=== PATIENT | female | born 1955 | race Caucasian/White ===

== ENCOUNTER 2017-05-11 11:34 | Emergency (ER) | payer BC, OTHER ==
[2017-05-11 11:41] VITALS: BP 142/82; PULSE 76; TEMP 98.7; BMI 25.9
[2017-05-11] MEDS ORDERED: ACETAMINOPHEN WITH CODEINE 300MG/30MG TABLET PO ONE (12:26)
[2017-05-11] MEDS ORDERED: ACETAMINOPHEN WITH CODEINE 300MG/30MG TABLET ONE (12:28)
[2017-05-11] MEDS ORDERED: PSEUDOEPHEDRINE HCL 30 MG TABLET PO ONE (12:30)
--- NOTE | 2017-05-11 12:37 | PDOC ---
History of Present Illness - General Chief Complaint: Cold Symptoms Stated Complaint: COUGH, BACK PAIN Time Seen by Provider: 05/11/17 11:48 History Source: Patient Exam Limitations: No Limitations - History of Present Illness Initial Comments: 05/11/17 12:37 This is 62-year-old woman with past medical history of hypertension who presents to the emergency department with fever, headaches, sore throat, productive cough with yellow sputum 2 days. Patient states that she woke up on Friday feeling feverish did not check her temperature but felt warm. She has tried [id number] medications to help alleviate symptoms with minimal relief. She denies shortness of breath, chest pain, nausea, vomiting, changes in urination or bowel pattern. She does report upper back pain which worsens with cough and intermittent dizziness. Timing/Duration: reports: other (2 days) Past History - Past Medical History Allergies/Adverse Reactions: Allergies Allergy/AdvReac Type Severity Reaction Status Date / Time vancomycin Allergy Unknown Verified 05/11/17 11:41 Home Medications: Ambulatory Orders Hydrochlorothiazide [Hctz -] 12.5 mg PO DAILY 05/11/17 Oseltamivir Phosphate [Tamiflu -] 75 mg PO DAILY #5 capsule 05/11/17 HTN: Yes - Surgical History Abdominal Surgery: Yes (gastric bypass) - Suicide/Smoking/Psychosocial Hx Smoking History: Never smoked Have you smoked in the past 12 months: No Hx Alcohol Use: No Drug/Substance Use Hx: No Substance Use Type: None Hx Substance Use Treatment: No Review of Systems - Review of Systems Able to Perform ROS?: Yes Is the patient limited Portuguese proficient: No Constitutional: Yes: See HPI HEENTM: Yes: See HPI Respiratory: Yes: See HPI Cardiac (ROS): No: Symptoms Reported ABD/GI: No: Symptoms Reported : No: Symptoms Reported Musculoskeletal: No: Symptoms Reported Integumentary: No: Symptoms Reported Neurological: No: Symptoms reported *Physical Exam - Vital Signs Last Vital Signs Temp Pulse Resp BP Pulse Ox 98.7 F 76 20 142/82 98 05/11/17 11:37 05/11/17 11:37 05/11/17 11:37 05/11/17 11:37 05/11/17 11:37 - Physical Exam General Appearance: Yes: Appropriately Dressed. No: Apparent Distress HEENT: positive: EOMI, SONIA, Pharyngeal Erythema. negative: Tonsillar Exudate Neck: positive: Trachea midline, Supple. negative: Tender Respiratory/Chest: positive: Lungs Clear, Normal Breath Sounds. negative: Respiratory Distress, Accessory Muscle Use Cardiovascular: positive: Regular Rhythm, Regular Rate, S1, S2. negative: Edema , JVD, Murmur Musculoskeletal: positive: Normal Inspection. negative: CVA Tenderness Extremity: positive: Normal Capillary Refill, Normal Inspection, Normal Range of Motion Neurologic: positive: ms sql server developer II-XII NML intact, Fully Oriented, Alert, Normal Mood/ Affect, Normal Response, Motor Strength 11/22 ED Treatment Course - RADIOLOGY Radiology Studies Ordered: Category Date Time Status CHEST PA & LAT [RAD] Stat Radiology 05/11/17 12:28 Ordered Medical Decision Making - Medical Decision Making 05/11/17 12:37 This is 62-year-old woman with past medical history of hypertension who presents to the emergency department with fever, headaches, sore throat, productive cough with yellow sputum 2 days. Patient states that she woke up on Friday feeling feverish did not check her temperature but felt warm. She has tried [id number] medications to help alleviate symptoms with minimal relief. She denies shortness of breath, chest pain, nausea, vomiting, changes in urination or bowel pattern. She does report upper back pain which worsens with cough and intermittent dizziness. Patient is alert and oriented 3 and in no apparent distress. Cranial nerves II through XII intact with steady gait appreciated. TMs pearly chatman with appropriate light reflex bilaterally. Oropharynx erythematous without signs of exudates or edema. Lungs clear to auscultation bilaterally respirations even and unlabored. Regular rate and rhythm. S1 and S2 presents. No murmur rub or gallop. Normal bowel sounds presents. Abdomen soft nontender nondistended. Differential diagnoses upper respiratory viral illness, pneumonia Given Centor score of 0, subjective fevers, cough, I will obtain influenza nasopharyngeal swab, do a chest x-ray, and treats with Tylenol 3 for pain and cough suppression and Sudafed given nasal congestion. 05/11/17 13:31 Official read of chest x-ray by Dr. Escobar-2 views revealed clear lungs, normal mediastinum and sharp mangles. Soft tissues are intact and there are degenerative changes with wedging. Since 05/16/2016, there is no change of an adverse nature. Impression: No acute pathology. No significant change. Influenza Nerf nasopharyngeal swab is positive for influenza B. I will give the patient a prescription for Tamiflu. I will instruct the patient to take Tylenol and/or Motrin as needed by follow manufacturers instructions. I will instruct the patient to take Coricidin for nasal congestion as needed and directed by manufacturers instructions. I will instruct to follow-up with her primary doctor within 1 week if symptoms do not improve. *DC/Admit/Observation/Transfer Diagnosis at time of Disposition: Influenza due to influenza virus, type B - Discharge Dispostion Disposition: HOME Condition at time of disposition: Stable Admit: No - Prescriptions Prescriptions: Oseltamivir Phosphate [Tamiflu -] 75 mg PO DAILY #5 capsule - Referrals Referrals: Jarret Yancey [Primary Care Provider] - - Patient Instructions Additional Instructions: Drink plenty of fluids. Take, or Motrin as needed for pain and/or fevers as directed by manufacturers instructions. You've been prescribed Tamiflu take one tablet every day for the next 5 days. If he does feel better within the next week, follow-up with your primary doctor. Return to emergency department for worsening fever, headaches, nausea, vomiting , inability to swallow, or any other concerns. Thank you very much for choosing us to provide your emergent healthcare needs.
[2017-05-11] MEDS ORDERED: PSEUDOEPHEDRINE HCL 60 MG TABLET ONE (12:40)
== END 2017-05-11 13:45 | disposition home or self-care (01) ==
LOC: JERFT 11:34
DX: J10.1 Influenza due to other identified influenza virus with other respiratory manifestations (principal)
CPT/HCPCS: 71020-TC; 87804; 99281-25

== ENCOUNTER 2018-08-27 13:17 | Inpatient (IN) | payer BC ==
[2018-08-27 13:33] VITALS: BMI 27.4
[2018-08-27] MEDS ORDERED: SODIUM CHLORIDE 1,000 ML IV STA ×2 (15:32→17:05)
--- NOTE | 2018-08-27 15:32 | PDOC ---
History of Present Illness - General Chief Complaint: Back Pain Stated Complaint: lower BACK PAIN Time Seen by Provider: 08/27/18 14:21 History Source: Patient Exam Limitations: No Limitations - History of Present Illness Initial Comments: 08/27/18 16:31 Patient is a 63-year-old female who presents to the ER for low back pain and neck pain starting this afternoon. Patient states that she was outside in the garden at school when she suddenly felt dizzy and lightheaded. Patient states she blacked out and fell to the ground. When she came to she had neck pain and low-back pain. She states that she feels weak at this time. Denies fevers, chills, chest pain, nausea, vomiting, diarrhea, recent illness. Patient did not get a flu shot this year. Past History - Travel Traveled outside of the country in the last 30 days: No Close contact w/someone who was outside of country & ill: No - Past Medical History Allergies/Adverse Reactions: Allergies Allergy/AdvReac Type Severity Reaction Status Date / Time vancomycin Allergy Unknown Verified 08/27/18 13:32 Home Medications: Ambulatory Orders Hydrochlorothiazide [Hctz -] 12.5 mg PO DAILY 05/11/17 COPD: No HTN: Yes - Surgical History Abdominal Surgery: Yes (gastric bypass) - Suicide/Smoking/Psychosocial Hx Smoking History: Never smoked Have you smoked in the past 12 months: No Information on smoking cessation initiated: No Hx Alcohol Use: No Drug/Substance Use Hx: No Substance Use Type: None Hx Substance Use Treatment: No Review of Systems - Review of Systems Able to Perform ROS?: Yes Comments:: 08/27/18 15:43 CONSTITUTIONAL: Absent: fever, chills, diaphoresis, generalized weakness, malaise, loss of appetite HEENT: Absent: rhinorrhea, nasal congestion, throat pain, throat swelling, difficulty swallowing, mouth swelling, ear pain, eye pain, visual Changes CARDIOVASCULAR: Present: LOC Absent: chest pain, loss of consciousness, palpitations, irregular heart rate, peripheral edema RESPIRATORY: Absent: cough, shortness of breath, dyspnea with exertion, orthopnea, wheezing, stridor, hemoptysis GASTROINTESTINAL: Absent: abdominal pain, abdominal distension, nausea, vomiting, diarrhea, constipation, melena, hematochezia GENITOURINARY: Absent: dysuria, frequency, urgency, hesitancy, hematuria, flank pain, genital pain MUSCULOSKELETAL: Present: neck and back pain Absent: myalgia, arthralgia, joint swelling SKIN: Absent: rash, itching, pallor HEMATOLOGIC/IMMUNOLOGIC: Absent: easy bleeding, easy bruising, lymphadenopathy, frequent infections ENDOCRINE: Absent: unexplained weight gain, unexplained weight loss, heat intolerance, cold intolerance NEUROLOGIC: Present: dizziness Absent: headache, focal weakness or paresthesias, unsteady gait, seizure, mental status changes, bladder or bowel incontinence PSYCHIATRIC: Absent: anxiety, depression, suicidal or homicidal ideation, hallucinations. Is the patient limited Wolof proficient: No *Physical Exam - Vital Signs Last Vital Signs Temp Pulse Resp BP Pulse Ox 97.9 F 67 18 181/89 H 100 08/27/18 13:30 08/27/18 13:30 08/27/18 13:30 08/27/18 13:30 08/27/18 13:30 - Physical Exam Comments: 08/27/18 16:30 GENERAL: Well developed, well nourished. Awake and alert. No acute distress. HEENT: Normocephalic, atraumatic. PERRLA, EOMI. No conjunctival pallor. Sclera are non- icteric. Moist mucous membranes. Oropharynx is clear. NECK: Supple. Full ROM. No JVD. Carotid pulses 2+ and symmetric, without bruits. No thyromegaly. No lymphadenopathy. CARDIOVASCULAR: Regular rate and rhythm. No murmurs, rubs, or gallops. Distal pulses are 2+ and symmetric. PULMONARY: No evidence of respiratory distress. Lungs clear to auscultation bilaterally. No wheezing, rales or rhonchi. ABDOMINAL: Soft. Non-tender. Non-distended. No rebound or guarding. No organomegaly. Normoactive bowel sounds. MUSCULOSKELETAL TTP of the L paraspinous muscles from C4-C8. TTP of the paraspinous muscles of the low back b/l L3-L5. No midline tenderess. (-) straight leg raise. Normal range of motion at all joints. No bony deformities or tenderness. No CVA tenderness. EXTREMITIES: No cyanosis. No clubbing. No edema. No calf tenderness. SKIN: Warm and dry. Normal capillary refill. No rashes. No jaundice. NEUROLOGICAL: Alert, awake, appropriate. Cranial nerves 2-12 intact. No deficits to light touch and temperature in face, upper extremities and lower extremities. No motor deficits in the in face, upper extremities and lower extremities. Normoreflexic in the upper and lower extremities. Normal speech. Toes are down- going bilaterally. Gait is normal without ataxia. PSYCHIATRIC: Cooperative. Good eye contact. Appropriate mood and affect. Moderate Sedation - Procedure Monitoring Vital Signs: Procedure Monitoring Vital Signs Temperature 97.9 F 08/27/18 13:30 Pulse Rate 67 08/27/18 13:30 Respiratory Rate 18 08/27/18 13:30 Blood Pressure 181/89 H 08/27/18 13:30 O2 Sat by Pulse Oximetry (%) 100 08/27/18 13:30 ED Treatment Course - LABORATORY CBC & Chemistry Diagram: 08/27/18 16:29 08/27/18 16:29 Medical Decision Making - Medical Decision Making 08/27/18 16:32 Patient presents to the ED for neck pain and back pain status post syncopal episode this afternoon. Patient initially triaged to fast track. Current patient blood pressure is 181/89. Given complaints of syncope we'll order a syncope workup. Patient endorsed to the main ER. Discharge nurse and main ER attending made aware. Patient is stable for transfer to the main ER. *DC/Admit/Observation/Transfer Diagnosis at time of Disposition: Syncope - Referrals - Patient Instructions - Post Discharge Activity
[2018-08-27] MEDS ORDERED: ACETAMINOPHEN 1000 MG/100 ML VIAL (NON FORMULARY) IVPB ONE (15:33)
[2018-08-27 16:43] LABS: BASO % 0.6 % (0-2.0); EOS % 0.6 % (0-4.5); HEMATOCRIT 35.3 % (32.4-45.2); HEMOGLOBIN 11.8 GM/dL (10.7-15.3); MCH 27.8 pg (25.7-33.7); MCHC 33.4 g/dl (32.0-36.0); MEAN PLT VOLUME 9.6 fl (7.5-11.1); MONO % 5.9 % (3.8-10.2); NEUT % 64.9 % (42.8-82.8); PLATELET COUNT 182 K/MM3 (134-434); RBC 4.25 M/mm3 (3.60-5.2); RDW 15.5 % (11.6-15.6); WHITE BLOOD COUNT 6.4 K/mm3 (4.0-10.0)
[2018-08-27 16:48] LABS: URINE APPEARANCE CLEAR; URINE BILIRUBIN NEGATIVE (<2.0 mg/dL); URINE COLOR LTYELLOW; URINE GLUCOSE (UA) NEGATIVE (NEGATIVE); URINE KETONE TRACE (NEGATIVE); URINE LEUK ESTERASE 1+ (NEGATIVE); URINE NITRITE NEGATIVE (NEGATIVE); URINE PROTEIN NEGATIVE (NEGATIVE)
[2018-08-27 17:05] LABS: INR 1.05 (0.83-1.09); PROTHROMBIN TIME (PATIENT) 12.4 SEC (9.7-13.0)
[2018-08-27 17:15] LABS: EPI CELLS RARE /HPF (FEW); URINE MUCUS RARE
[2018-08-27 17:22] LABS: ALBUMIN 3.9 g/dl (3.4-5.0); ALK PHOS 79 U/L (45-117); ANION GAP 5 MMOL/L (8-16); BILIRUBIN,TOTAL 0.3 mg/dL (0.2-1); BLOOD UREA NITROGEN 12 mg/dL (7-18); CALCIUM 9.4 mg/dL (8.5-10.1); CHLORIDE 106 mmol/L (98-107); CO2 29 mmol/L (21-32); CREATININE 0.6 mg/dL (0.55-1.3); GLUCOSE,RANDOM 137 mg/dL (74-106); POTASSIUM 4.2 mmol/L (3.5-5.1); SGOT/AST 29 U/L (15-37); SGPT/ALT 22 U/L (13-61); SODIUM 140 mmol/L (136-145)
--- NOTE | 2018-08-27 17:25 | PDOC ---
History of Present Illness - General Chief Complaint: Back Pain Stated Complaint: lower BACK PAIN Time Seen by Provider: 08/27/18 14:21 History Source: Patient Exam Limitations: No Limitations, Clinical Condition, Dementia - History of Present Illness Initial Comments: History is limited because patient is apparently very forgetful and has changed her story 3 times since beginning to interview her. She appears to have some type of dementia. 63 yo F w a pmh of HTN, DM (Which patient says has resolved since receiving Gastric bypass), Gastric bypass, unspecified dementia and migraines presents to the ER s/p syncope earlier on today associated with bilateral lower back pain. She reports that she does not remember the syncope episode. She does not think her heart was racing before the fall. She also does not believe she experienced any palpitations, lightheadedness, diaphoresis, or aura before the fall. She believes she was only passed out for a short duration of time not more than 1 minute. She denies any postictal symptoms. She states this is the 4th time she has fallen down in the past week and denies any prodromal symptoms prior to the syncopal episodes. She denies any chest pain, SOB, difficulty breathing, headache, neck pain, blurry vision, fevers, chills, infections, dysuria, frequency, urgency, weakness , numbness, tingling, chills, abdominal pain, diarrhea, or constipation. PCP: Jarret Yancey PSH: Gastric Bypass Social Hx: Denies smoking, drinking, or other substance usage. Allergies: Vancomycin Past History - Past Medical History Allergies/Adverse Reactions: Allergies Allergy/AdvReac Type Severity Reaction Status Date / Time vancomycin Allergy Unknown Verified 08/27/18 13:32 Home Medications: Ambulatory Orders Hydrochlorothiazide [Hctz -] 12.5 mg PO DAILY 05/11/17 COPD: No HTN: Yes - Surgical History Abdominal Surgery: Yes (gastric bypass) - Suicide/Smoking/Psychosocial Hx Smoking History: Never smoked Have you smoked in the past 12 months: No Information on smoking cessation initiated: No Hx Alcohol Use: No Drug/Substance Use Hx: No Substance Use Type: None Hx Substance Use Treatment: No Review of Systems - Review of Systems Is the patient limited Bulgarian proficient: No Constitutional: No: Chills, Diaphoresis, Fever, Loss of Appetite, Malaise, Weakness HEENTM: No: Eye Pain, Blurred Vision Respiratory: No: Cough, Orthopnea, Shortness of Breath, SOB with Exertion, SOB at Rest, Wheezing Cardiac (ROS): Yes: Syncope. No: Chest Pain, Edema, Irregular Heart Rate, Lightheadedness, Palpitations, Chest Tightness ABD/GI: No: Abdominal Distended, Constipated, Diarrhea, Nausea, Poor Appetite, Poor Fluid Intake, Rectal Bleeding, Vomiting : Yes: Flank Pain. No: Burning, Dysuria, Discharge, Frequency, Hematuria Musculoskeletal: Yes: Back Pain. No: Joint Swelling, Muscle Pain Integumentary: No: Bruising, Change in Color, Change in Hair/Nails, Dryness, Erythema, Flushing, Lesions Neurological: Yes: Headache. No: Numbness, Paresthesia, Seizure, Tingling, Tremors Psychiatric: Yes: Anxiety. No: Depression, Frequent Crying, Stressors Endocrine: No: Excessive Sweating, Flushing Hematologic/Lymphatic: No: Anemia, Blood Clots, Easy Bleeding *Physical Exam - Vital Signs Last Vital Signs Temp Pulse Resp BP Pulse Ox 97.9 F 67 18 181/89 H 100 08/27/18 13:30 08/27/18 13:30 08/27/18 13:30 08/27/18 13:30 08/27/18 13:30 - Physical Exam General Appearance: Yes: Nourished, Appropriately Dressed. No: Apparent Distress HEENT: positive: EOMI, SONIA, Normal ENT Inspection, Normal Voice Neck: positive: Trachea midline, Supple. negative: Tender, Rigid, Lymphadenopathy (R), Lymphadenopathy (L) Respiratory/Chest: positive: Lungs Clear, Normal Breath Sounds. negative: Respiratory Distress Cardiovascular: positive: Regular Rhythm, Regular Rate, S1, S2. negative: Edema , JVD, Murmur Vascular Pulses: Dorsalis-Pedis (R): 2+, Doralis-Pedis (L): 2+ Gastrointestinal/Abdominal: positive: Normal Bowel Sounds, Soft. negative: Distended, Guarding, Rebound Rectal Exam: positive: deferred Lymphatic: negative: Adenopathy Musculoskeletal: positive: Normal Inspection, CVA Tenderness (bilaterally), Muscle Spasm, Vertebral Tenderness Extremity: positive: Normal Capillary Refill, Normal Inspection, Normal Range of Motion Integumentary: positive: Normal Color, Dry, Warm Neurologic: positive: sap architect II-XII NML intact, Fully Oriented, Alert, Normal Mood/ Affect, Normal Response, Motor Strength 5/5 Moderate Sedation - Procedure Monitoring Vital Signs: Procedure Monitoring Vital Signs Temperature 97.9 F 08/27/18 13:30 Pulse Rate 67 08/27/18 13:30 Respiratory Rate 18 08/27/18 13:30 Blood Pressure 181/89 H 08/27/18 13:30 O2 Sat by Pulse Oximetry (%) 100 08/27/18 13:30 ED Treatment Course - LABORATORY CBC & Chemistry Diagram: 08/27/18 16:29 08/27/18 16:29 - ADDITIONAL ORDERS Additional order review: Laboratory Results 08/27/18 08/27/18 08/27/18 16:29 16:29 16:29 PT with INR 12.40 INR 1.05 Sodium 140 Potassium 4.2 Chloride 106 Carbon Dioxide 29 Anion Gap 5 L BUN 12 Creatinine 0.6 Creat Clearance w eGFR > 60 Random Glucose 137 H Calcium 9.4 Total Bilirubin 0.3 AST 29 ALT 22 Alkaline Phosphatase 79 Creatine Kinase 154 Troponin I < 0.02 Total Protein 8.0 Albumin 3.9 Urine Color Urine Appearance Urine pH Ur Specific [place] Urine Protein Urine Glucose (UA) Urine Ketones Urine Blood Urine Nitrite Urine Bilirubin Urine Urobilinogen Ur Leukocyte Esterase Urine WBC (Auto) Urine RBC (Auto) Ur Epithelial Cells Urine Mucus 08/27/18 16:01 PT with INR INR Sodium Potassium Chloride Carbon Dioxide Anion Gap BUN Creatinine Creat Clearance w eGFR Random Glucose Calcium Total Bilirubin AST ALT Alkaline Phosphatase Creatine Kinase Troponin I Total Protein Albumin Urine Color Ltyellow Urine Appearance Clear Urine pH 6.0 D Ur Specific [place] 1.016 Urine Protein Negative Urine Glucose (UA) Negative Urine Ketones Trace H Urine Blood Negative Urine Nitrite Negative Urine Bilirubin Negative Urine Urobilinogen 2.0 H Ur Leukocyte Esterase 1+ H Urine WBC (Auto) 10 Urine RBC (Auto) 1 Ur Epithelial Cells Rare Urine Mucus Rare 08/27/18 16:29 RBC 4.25 MCV 83.0 MCHC 33.4 RDW 15.5 MPV 9.6 Neutrophils % 64.9 Lymphocytes % 28.0 Monocytes % 5.9 Eosinophils % 0.6 Basophils % 0.6 Medical Decision Making - Medical Decision Making History is limited because patient is apparently very forgetful and has changed her story 3 times since beginning to interview her. She appears to have some type of dementia. 63 yo F w a pmh of HTN, DM (Which patient says has resolved since receiving Gastric bypass), Gastric bypass, unspecified dementia and migraines presents to the ER s/p syncope earlier on today associated with bilateral lower back pain. She reports that she does not remember the syncope episode. She does not think her heart was racing before the fall. She also does not believe she experienced any palpitations, lightheadedness, diaphoresis, or aura before the fall. She believes she was only passed out for a short duration of time not more than 1 minute. She denies any postictal symptoms. She states this is the 4th time she has fallen down in the past week and denies any prodromal symptoms prior to the syncopal episodes. VS: BP is elevated. DDx IBNLT: AAA, Dissection, arrhythmia, acs/mi, electrolyte abnormality, Vitamin derangement, Brain bleed, vertebral fracture, other infection, UTI/Pylo , kidney stones Plan: Labs, Urine, CT, XR, EKG, POCUS, IV hydration, analgesia, re-assess. POCUS shows no AAA. Cbc, Cmp unremarkable UA shows small possible UTI but patient is asymptomatic. After workup patient will be admitted to Tele Obs for repeated syncope workup. Signing out patient to night team. *DC/Admit/Observation/Transfer Diagnosis at time of Disposition: Syncope - Referrals - Patient Instructions - Post Discharge Activity
--- NOTE | 2018-08-27 18:14 | PDOC ---
Attending Attestation - HPI HPI: 08/27/18 18:18 The patient is a 63 year old female with a significant PMH of HTN, DM, gastric bypass, unspecified dementia, and migraines who presents to the emergency department with an episode of dizziness earlier today. 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 Patient states she felt "her back pulled" and has been experiencing back pain since then. Patient had another slip and fall 2 weeks ago, in which she slipped on a crack on the ground. Patient denies any head trauma or loss of consciousness both times. Today, the patient reports she was playing with the children in the playground and subsequently felt dizzy. Patient's friend grabbed her before she could fall to the ground and helped her to the nurse. Patient presents to the ER for evaluation of frequent slips and falls. Patient has not seen her PCP in months and is concerned about possible Alzheimer's. As per the the patient has had episodes of forgetfulness over the last 4 months. Patient admits to urinary frequency over the past 3 days. She denies any chest pain, abdominal pain, diaphoresis, numbness/tingling/ weakness, SOB, headache, neck pain, vision changes, fevers, chills, dysuria, urgency, diarrhea, or constipation. PSH: Gastric Bypass Social Hx: Denies smoking, drinking, or other substance usage. Allergies: Vancomycin - Physicial Exam PE: 08/27/18 18:18 ADULT PHYSICAL EXAM Constitutional: Awake, alert, oriented. No acute distress. Neck: Supple. Full ROM. No lymphadenopathy. Cardiovascular: Regular rate. Regular rhythm. S1, S2 regular. Distal pulses are 2+ and symmetric. Pulmonary/Chest: No evidence of respiratory distress. Clear to auscultation bilaterally. No wheezing, rales or rhonchi. Abdominal: Soft and non-distended. There is no tenderness. No rebound, guarding or rigidity. No organomegaly. No palpable masses. Good bowel sounds. Back: No CVA tenderness. (+) Midline L spine tenderness to palpation; no radiation to the legs. Musculoskeletal: No saitial anesthesias or paresthesias. No edema. No cyanosis. No clubbing. Full range of motion in all extremities. No calf tenderness. Radial/pedal pulses are intact and 2+ bilaterally Skin: Skin is warm and dry. No petechiae. No purpura. Neurological: Alert and oriented to person, place, and time. Cranial nerves II -XII are grossly intact. Normal speech. Strength is grossly symmetric. No sensory deficits. Psychiatric: Good eye contact. Normal interaction, affect and behavior. <Joyce Figueredo - Last Filed: 08/27/18 18:29> - Resident Resident Name: Arnold Schaefer - ED Attending Attestation I have performed the following: I have examined & evaluated the patient, The case was reviewed & discussed with the resident, I agree w/resident's findings & plan, Exceptions are as noted - Medical Decision Making 08/27/18 17:57 I, Dr. Joanne Gonzalez, DO, attest that this document has been prepared under my direction and personally reviewed by me in its entirety. I further attest, that it accurately reflects all work, treatment, procedures and medical decision -making performed by me. 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 -c/o lbp and urinary freq recently -no red flags - no saddle paresthesias, no radicular pain, no weakness, no paresthesias, no bowel or bladder incontinence -labs sent from [facility] -pending imaging - concerned over memory loss that has been present x 4 months -pt also with hx of gastric bypass- will check b vitamin levels and folic acid -will monitor and reassess -no cp/sob/palpitations 08/27/18 19:35 labs reviewed mild uti- given freq will treat 08/27/18 19:35 pt with concern for syncope vs near syncope today - pt is a poor historian and on different histories provides LOC vs lack of loc 08/27/18 19:[address] pt on obs 08/27/18 19:38 cxr clear no acute findings on head ct or c spine ct 08/27/18 21:29 resident discussed case with Dr. Contreras who accepts pt to service <Joanne Gonzalez - Last Filed: 08/27/18 21:30> Heart Score/ECG Review - ECG Intrepretation Comment:: 08/27/18 19:36 sinus at 65, nl axis, low voltage, t wave flattening diffusely <Joanne Gonzalez - Last Filed: 08/27/18 21:30>
[2018-08-27] MEDS ORDERED: ACETAMINOPHEN INJECTION 100 ML IVPB ONE (18:22)
[2018-08-27 18:40] LABS: MAGNESIUM 2.3 mg/dL (1.8-2.4)
--- NOTE | 2018-08-27 19:29 | PDOC ---
*Physical Exam - Vital Signs Last Vital Signs Temp Pulse Resp BP Pulse Ox 97.9 F 67 18 181/89 H 100 08/27/18 13:30 08/27/18 13:30 08/27/18 13:30 08/27/18 13:30 08/27/18 13:30 ED Treatment Course - LABORATORY CBC & Chemistry Diagram: 08/27/18 16:29 08/27/18 16:29 - ADDITIONAL ORDERS Additional order review: Laboratory Results 08/27/18 08/27/18 08/27/18 16:29 16:29 16:29 PT with INR 12.40 INR 1.05 Sodium 140 Potassium 4.2 Chloride 106 Carbon Dioxide 29 Anion Gap 5 L BUN 12 Creatinine 0.6 Creat Clearance w eGFR > 60 Random Glucose 137 H Calcium 9.4 Magnesium 2.3 Total Bilirubin 0.3 AST 29 ALT 22 Alkaline Phosphatase 79 Creatine Kinase 154 Creatine Kinase Index 0.6 CK-MB (CK-2) < 1.0 Troponin I < 0.02 Total Protein 8.0 Albumin 3.9 Urine Color Urine Appearance Urine pH Ur Specific [place] Urine Protein Urine Glucose (UA) Urine Ketones Urine Blood Urine Nitrite Urine Bilirubin Urine Urobilinogen Ur Leukocyte Esterase Urine WBC (Auto) Urine RBC (Auto) Ur Epithelial Cells Urine Mucus 08/27/18 16:01 PT with INR INR Sodium Potassium Chloride Carbon Dioxide Anion Gap BUN Creatinine Creat Clearance w eGFR Random Glucose Calcium Magnesium Total Bilirubin AST ALT Alkaline Phosphatase Creatine Kinase Creatine Kinase Index CK-MB (CK-2) Troponin I Total Protein Albumin Urine Color Ltyellow Urine Appearance Clear Urine pH 6.0 D Ur Specific [place] 1.016 Urine Protein Negative Urine Glucose (UA) Negative Urine Ketones Trace H Urine Blood Negative Urine Nitrite Negative Urine Bilirubin Negative Urine Urobilinogen 2.0 H Ur Leukocyte Esterase 1+ H Urine WBC (Auto) 10 Urine RBC (Auto) 1 Ur Epithelial Cells Rare Urine Mucus Rare 08/27/18 16:29 RBC 4.25 MCV 83.0 MCHC 33.4 RDW 15.5 MPV 9.6 Neutrophils % 64.9 Lymphocytes % 28.0 Monocytes % 5.9 Eosinophils % 0.6 Basophils % 0.6 - Medications Given in the ED: ED Medications Discontinued Medications Generic Name Dose Route Start Last Admin Trade Name Freq PRN Reason Stop Dose Admin Acetaminophen 1,000 mg 08/27/18 15:33 08/27/18 18:28 Ofirmev Injection - IVPB 08/27/18 15:34 1,000 mg ONCE ONE Administration Sodium Chloride 1,000 mls @ 1,000 mls/hr 08/27/18 15:32 08/27/18 18:01 Normal Saline - IV 08/27/18 16:31 1,000 mls/hr ASDIR STA Administration Sodium Chloride 1,000 mls @ 1,000 mls/hr 08/27/18 17:05 08/27/18 18:01 Normal Saline - IV 08/27/18 18:04 1,000 mls/hr ASDIR STA Administration Medical Decision Making - Medical Decision Making I have assumed care of the patient from Dr. Lobato, who has discussed the clinical presentation, work-up, and ED course thus far. I have reviewed the patients medical record and ED course and agree with all aspects of care thus far. 08/27/18 19:24 CT cervical spine w/ multilevel degenerative changes, possible small central C3- C4 and C4-C5 disc herniations CT head w/ no definite acute intracranial pathology; probable mild pituitary enlargement -Rads recs non-urgent MRI, and PRL level ordered CXR w/o evidence of acute pathology ECG w/ NSR, HR 65, low voltage, and baseline artifact No leukocytosis No anemia Lytes wnl No DEBRA LFTs wnl Trop I neg 08/27/18 19:26 Plan for admission to [facility] for syncope vs near syncope 08/27/18 19:37 08/27/18 19:38 *DC/Admit/Observation/Transfer Diagnosis at time of Disposition: Syncope Qualifiers: Syncope type: unspecified Qualified Code(s): R55 - Syncope and collapse - Discharge Dispostion Condition at time of disposition: Good Decision to Admit order: Yes - Referrals - Patient Instructions - Post Discharge Activity
[2018-08-27] MEDS ORDERED: CEFTRIAXONE 1,000 MG in DEXTROSE 5%-WATER - 50 ML IVPB ONE (19:35)
[2018-08-27] MEDS ORDERED: IBUPROFEN 600 MG TABLET (FP) PO ONE (19:48)
--- NOTE | 2018-08-27 20:59 | HP ---
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 She reports that she hit her head. Denied any other complaints. ER course was notable for: (1) ekg (2) head ct (3) Recent Travel: none PAST MEDICAL HISTORY: htn PAST SURGICAL HISTORY: gastric bypass Social History: Smoking: no Alcohol:no Drugs: no Family History: none Allergies vancomycin Allergy (Unknown, Verified 08/27/18 13:32) HOME MEDICATIONS: Home Medications Medication Instructions Recorded Hydrochlorothiazide [Hctz -] 12.5 mg PO DAILY 05/11/17 REVIEW OF SYSTEMS CONSTITUTIONAL: Absent: fever, chills, diaphoresis, generalized weakness, malaise, loss of appetite, weight change HEENT: Absent: rhinorrhea, nasal congestion, throat pain, throat swelling, difficulty swallowing, mouth swelling, ear pain, eye pain, visual changes CARDIOVASCULAR: Absent: chest pain, syncope, lightheadedness, peripheral edema present- palpitations, irregular heart rate, RESPIRATORY: Absent: cough, shortness of breath, dyspnea with exertion, orthopnea, wheezing, stridor, hemoptysis GASTROINTESTINAL: Absent: abdominal pain, abdominal distension, nausea, vomiting, diarrhea, constipation, melena, hematochezia GENITOURINARY: Absent: dysuria, frequency, urgency, hesitancy, hematuria, flank pain, genital pain MUSCULOSKELETAL: Absent: myalgia, arthralgia, joint swelling, back pain, neck pain SKIN: Absent: rash, itching, pallor HEMATOLOGIC/IMMUNOLOGIC: Absent: easy bleeding, easy bruising, lymphadenopathy, frequent infections ENDOCRINE: Absent: unexplained weight gain, unexplained weight loss, heat intolerance, cold intolerance NEUROLOGIC: Absent: headache, focal weakness or paresthesias, dizziness, unsteady gait, seizure, mental status changes, bladder or bowel incontinence PSYCHIATRIC: Absent: anxiety, depression, suicidal or homicidal ideation, hallucinations. PHYSICAL EXAMINATION Vital Signs - 24 hr 08/27/18 13:30 Temperature 97.9 F Pulse Rate 67 Respiratory 18 Rate Blood Pressure 181/89 H O2 Sat by Pulse 100 Oximetry (%) GENERAL: Awake, alert, and fully oriented, in no acute distress. HEAD: Normal with no signs of trauma. EYES: Pupils equal, round and reactive to light, extraocular movements intact, sclera anicteric, conjunctiva clear. No lid lag. EARS, NOSE, THROAT: Ears normal, nares patent, oropharynx clear without exudates. Moist mucous membranes. NECK: Normal range of motion, supple without lymphadenopathy, JVD, or masses. LUNGS: Breath sounds equal, clear to auscultation bilaterally. No wheezes, and no crackles. No accessory muscle use. HEART: Regular rate and rhythm, normal S1 and S2 without murmur, rub or gallop. ABDOMEN: Soft, nontender, not distended, normoactive bowel sounds, no guarding, no rebound, no masses. No hepatomegaly or splenomegaly. MUSCULOSKELETAL: Normal range of motion at all joints. No bony deformities or tenderness. No CVA tenderness. UPPER EXTREMITIES: 2+ pulses, warm, well-perfused. No cyanosis. No clubbing. No peripheral edema. LOWER EXTREMITIES: 2+ pulses, warm, well-perfused. No calf tenderness. Varicose veins b/l NEUROLOGICAL: Cranial nerves II-XII intact. Normal speech. PSYCHIATRIC: Cooperative. Good eye contact. Appropriate mood and affect. SKIN: Warm, dry, normal turgor, no rashes or lesions noted, normal capillary refill. Laboratory Results - last 24 hr 08/27/18 08/27/18 08/27/18 16:01 16:29 16:29 WBC 6.4 RBC 4.25 Hgb 11.8 Hct 35.3 MCV 83.0 MCH 27.8 MCHC 33.4 RDW 15.5 Plt Count 182 MPV 9.6 Absolute Neuts (auto) 4.2 Neutrophils % 64.9 Lymphocytes % 28.0 Monocytes % 5.9 Eosinophils % 0.6 Basophils % 0.6 Nucleated RBC % 0 PT with INR 12.40 INR 1.05 Sodium Potassium Chloride Carbon Dioxide Anion Gap BUN Creatinine Creat Clearance w eGFR Random Glucose Calcium Magnesium Total Bilirubin AST ALT Alkaline Phosphatase Creatine Kinase Creatine Kinase Index CK-MB (CK-2) Troponin I Total Protein Albumin Urine Color Ltyellow Urine Appearance Clear Urine pH 6.0 D Ur Specific [place] 1.016 Urine Protein Negative Urine Glucose (UA) Negative Urine Ketones Trace H Urine Blood Negative Urine Nitrite Negative Urine Bilirubin Negative Urine Urobilinogen 2.0 H Ur Leukocyte Esterase 1+ H Urine WBC (Auto) 10 Urine RBC (Auto) 1 Ur Epithelial Cells Rare Urine Mucus Rare 08/27/18 08/27/18 16:29 16:29 WBC RBC Hgb Hct MCV MCH MCHC RDW Plt Count MPV Absolute Neuts (auto) Neutrophils % Lymphocytes % Monocytes % Eosinophils % Basophils % Nucleated RBC % PT with INR INR Sodium 140 Potassium 4.2 Chloride 106 Carbon Dioxide 29 Anion Gap 5 L BUN 12 Creatinine 0.6 Creat Clearance w eGFR > 60 Random Glucose 137 H Calcium 9.4 Magnesium 2.3 Total Bilirubin 0.3 AST 29 ALT 22 Alkaline Phosphatase 79 Creatine Kinase 154 Creatine Kinase Index 0.6 CK-MB (CK-2) < 1.0 Troponin I < 0.02 Total Protein 8.0 Albumin 3.9 Urine Color Urine Appearance Urine pH Ur Specific [place] Urine Protein Urine Glucose (UA) Urine Ketones Urine Blood Urine Nitrite Urine Bilirubin Urine Urobilinogen Ur Leukocyte Esterase Urine WBC (Auto) Urine RBC (Auto) Ur Epithelial Cells Urine Mucus ekg reviewed -CT head, C spine reviewed ASSESSMENT/PLAN: #Syncope - possible occult arrythmia, Hx of palpitations. R/o orthostatic hypotension. -tele-obs -fall precautions -trend troponin -echo -cardiac eval for holter monitoring -check orthostatics #Pituitary enlargement - patient asymptomatic -send prolactin level -consider MRI -neuro eval #HTN -c/w hydrochlorothiazide #DVT ppx -heparin sc Visit type - Emergency Visit Emergency Visit: Yes ED Registration Date: 08/27/18 Care time: The patient presented to the Emergency Department on the above date and was hospitalized for further evaluation of their emergent condition. - New Patient This patient is new to me today: Yes Date on this admission: 08/27/18 - Critical Care Critical Care patient: No
[2018-08-27] MEDS ORDERED: SODIUM CHLORIDE 1,000 ML IV SCH (21:15)
[2018-08-27] MEDS ORDERED: CEFTRIAXONE 1 GM/50 ML BAG ONE (21:50)
[2018-08-27] MEDS ORDERED: HEPARIN NA (PORCINE) 5,000 UNITS/ML 1ML VIAL ONE (21:51)
[2018-08-27] MEDS: HEPARIN NA (PORCINE) 5,000 UNITS/ML 1ML VIAL SQ SCH (22:10)
[2018-08-27 23:20] LABS: MAGNESIUM 2.1 mg/dL (1.8-2.4)
[2018-08-28] MEDS ORDERED: PNEUMOC 13-VAL CONJ-DIP CRM/PF 0.5 ML DISP.SYRIN IM ONE (08:00)
[2018-08-28] MEDS ORDERED: FLU VACCINE QUAD 60 MCG/0.5 ML (MDV 18-19) IM ONE (09:00)
[2018-08-28] MEDS ORDERED: PNEUMOCOCCAL 23 VACCINE 0.5 ML VIAL IM ONE (09:00)
[2018-08-28] MEDS: HYDROCHLOROTHIAZIDE 12.5 MG CAPSULE (FP) PO SCH (09:33)
[2018-08-28] MEDS: HEPARIN NA (PORCINE) 5,000 UNITS/ML 1ML VIAL SQ SCH ×2 (09:33→21:50)
[2018-08-28 12:04] LABS: HEMATOCRIT 35.1 % (32.4-45.2); HEMOGLOBIN 11.7 GM/dL (10.7-15.3); MCH 27.8 pg (25.7-33.7); MCHC 33.2 g/dl (32.0-36.0); MEAN CELL VOLUME 83.6 fl (80-96); MEAN PLT VOLUME 10.2 fl (7.5-11.1); PLATELET COUNT 197 K/MM3 (134-434); RBC 4.19 M/mm3 (3.60-5.2); RDW 15.6 % (11.6-15.6)
[2018-08-28 12:24] LABS: ANION GAP 6 MMOL/L (8-16); BLOOD UREA NITROGEN 10 mg/dL (7-18); CALCIUM 9.1 mg/dL (8.5-10.1); CHLORIDE 110 mmol/L (98-107); CO2 24 mmol/L (21-32); CREATININE 0.6 mg/dL (0.55-1.3); GLUCOSE,RANDOM 90 mg/dL (74-106); POTASSIUM 3.6 mmol/L (3.5-5.1); SODIUM 140 mmol/L (136-145)
--- NOTE | 2018-08-28 12:35 | PN ---
Progress Note, Physician Chief Complaint: patient seen and examined came back from xray complaining of dysuria and right flank pain also neck pain - Current Medication List Current Medications: Active Medications Heparin Sodium (Porcine) (Heparin -) 5,000 unit SQ BID [facility] Last Admin: 08/28/18 09:33 Dose: 5,000 unit Hydrochlorothiazide (Hctz -) 12.5 mg PO DAILY [facility] Last Admin: 08/28/18 09:33 Dose: 12.5 mg Sodium Chloride (Normal Saline -) 1,000 mls @ 50 mls/hr IV ASDIR [facility] Stop: 08/28/18 21:05 Last Admin: 08/27/18 22:00 Dose: 50 mls/hr Ceftriaxone Sodium 1 gm/ (Dextrose) 100 mls @ 200 mls/hr IVPB DAILY [facility]; Protocol - Objective Vital Signs: Vital Signs Temperature 98.2 F 08/28/18 08:00 Pulse Rate 59 L 08/28/18 08:00 Respiratory Rate 20 08/28/18 11:49 Blood Pressure 151/79 08/28/18 08:00 O2 Sat by Pulse Oximetry (%) 100 08/28/18 11:49 Constitutional: Yes: Calm Cardiovascular: Yes: Regular Rate and Rhythm, S1, S2 Respiratory: Yes: CTA Bilaterally Gastrointestinal: Yes: Normal Bowel Sounds, Soft Genitourinary: Yes: CVA Tenderness - Right Musculoskeletal: Yes: Other (neck and upper back tenderness) Edema: No Labs: CBC, BMP 08/28/18 10:50 08/28/18 06:00 INR, PTT INR 1.05 (0.83-1.09) 08/27/18 16:29 Problem List - Problems (1) Syncope Assessment/Plan: telemetry ct scan of neck disc disease neurology eval prolactinona Code(s): R55 - SYNCOPE AND COLLAPSE Qualifiers: Syncope type: unspecified Qualified Code(s): R55 - Syncope and collapse (2) Dysuria Assessment/Plan: awaiting culture rocephin renal sono r/p pyelonephritis ivf Code(s): R30.0 - DYSURIA (3) Pituitary abnormality Assessment/Plan: prloactin ordered brain MRI- pituatrty Code(s): 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
[2018-08-28] MEDS ORDERED: PT OWN MED DRAWER 7, Y5N ONE (13:21)
--- NOTE | 2018-08-28 13:24 | EKG ---
Test Reason : Blood Pressure : / mmHG Vent. Rate : 065 BPM Atrial Rate : 070 BPM P-R Int : 000 ms QRS Dur : 074 ms QT Int : 394 ms P-R-T Axes : 000 010 006 degrees QTc Int : 409 ms POOR DATA QUALITY, INTERPRETATION MAY BE ADVERSELY AFFECTED JUNCTIONAL RHYTHM CANNOT RULE OUT ANTERIOR INFARCT , AGE UNDETERMINED ABNORMAL ECG WHEN COMPARED WITH ECG OF 16-MAY-2016 01:57, JUNCTIONAL RHYTHM HAS REPLACED SINUS RHYTHM Confirmed by ROBERT JIN MD ([id number]) on 08/28/2018 1:23:47 PM Referred By: Confirmed By:ROBERT JIN MD
--- NOTE | 2018-08-28 13:44 | CON.CARD ---
Consult Consult Specialty:: cardiology Referred by:: Diane Reason for Consultation:: Syncope - History of Present Illness Chief Complaint: Syncope History of Present Illness: The patient is a 63-year-old female, we have a history of hypertension, now admitted with palpitations and syncope. 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 The events were witnessed by several people that stated that the patient was unresponsive for a short time. She is currently comfortable and symptom free. Denies chest pains and shortness of breath. No palpitations. - History Source History Provided By: Patient Limitations to Obtaining History: No Limitations - Past Medical History Cardio/Vascular: Yes: HTN - Alcohol/Substance Use Hx Alcohol Use: No - Smoking History Smoking history: Never smoked Have you smoked in the past 12 months: No Home Medications - Allergies Allergies/Adverse Reactions: Allergies Allergy/AdvReac Type Severity Reaction Status Date / Time vancomycin Allergy Unknown Verified 08/27/18 13:32 - Home Medications Home Medications: Ambulatory Orders Hydrochlorothiazide [Hctz -] 12.5 mg PO DAILY 05/11/17 Review of Systems - Review of Systems Constitutional: reports: No Symptoms Eyes: reports: No Symptoms HENT: reports: No Symptoms Neck: reports: No Symptoms Cardiovascular: reports: No Symptoms Respiratory: reports: No Symptoms Gastrointestinal: reports: No Symptoms Genitourinary: reports: No Symptoms Breasts: reports: No Symptoms Reported Musculoskeletal: reports: No Symptoms Integumentary: reports: No Symptoms Neurological: reports: No Symptoms Endocrine: reports: No Symptoms Hematology/Lymphatic: reports: No Symptoms Psychiatric: reports: No Symptoms Vital Signs: Vital Signs Temperature 98.2 F 08/28/18 08:00 Pulse Rate 59 L 08/28/18 08:00 Respiratory Rate 20 08/28/18 11:49 Blood Pressure 151/79 08/28/18 08:00 O2 Sat by Pulse Oximetry (%) 100 08/28/18 11:49 Constitutional: Yes: Well Nourished, No Distress, Calm Eyes: Yes: WNL, Conjunctiva Clear, EOM Intact HENT: Yes: WNL, Atraumatic, Normocephalic Neck: Yes: WNL, Supple, Thyromegaly Respiratory: Yes: WNL, Regular, CTA Bilaterally Gastrointestinal: Yes: WNL, Normal Bowel Sounds, Soft Renal/: Yes: WNL Cardiovascular: Yes: WNL, Regular Rate and Rhythm JVD: No Carotid Bruit: No PMI: Non-Displaced Heart Sounds: Yes: S1, S2 Musculoskeletal: Yes: WNL Extremities: Yes: WNL Edema: No Peripheral Pulses WNL: Yes Integumentary: Yes: WNL Neurological: Yes: WNL ...Motor Strength: WNL Psychiatric: Yes: WNL - Other Data Labs, Other Data: CBC, BMP 08/28/18 10:50 08/28/18 06:00 INR, PTT INR 1.05 (0.83-1.09) 08/27/18 16:29 Troponin, BNP 08/27/18 16:29 Troponin I < 0.02 Troponin, BNP 08/27/18 16:29 Troponin I < 0.02 Assessment/Plan The patient is a 63-year-old female, we have a history of hypertension, now admitted with palpitations and syncope. 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 The events were witnessed by several people that stated that the patient was unresponsive for a short time. She is currently comfortable and symptom free. Denies chest pains and shortness of breath. No palpitations. Is no evidence of ischemia nor acute coronary syndrome. No CHF. The patient is in sinus rhythm. There are no acute ECG changes. No significant events noted on telemetry. Please arrange for an echocardiogram. Would start Norvasc 5 mg daily for better blood pressure control Hydrate with normal saline, for a total of 2 L. There is no need for further critical workup at this point We'll follow the echo results. The patient is stable.
--- NOTE | 2018-08-28 13:54 | ECHO ---
Name: NATASHA ALFONSO Exam:Adult Echocardiogram Study Date: 08/28/2018 08:35 AM Age: 63 yrs Reason For Study: SYNCOPE Height: 66 in Weight: 170 lb BSA: 1.9 m2 MMode/2D Measurements & Calculations IVSd: 0.96 cm Ao root diam: 2.8 cm LVIDd: 4.1 cm LA dimension: 3.4 cm LVIDs: 2.4 cm LVPWd: 0.95 cm EDV(Teich): 72.5 ml LAV (MOD-bp): 60.6 ml ESV(Teich): 19.5 ml Doppler Measurements & Calculations MV E max avery: 80.5 cm/sec MR max avery: 394.0 cm/sec MV A max avery: 66.0 cm/sec MR max P.1 mmHg MV E/A: 1.2 MV dec time: 0.16 sec TR max avery: 225.4 cm/sec Med Peak E' Avery: 9.6 cm/sec TR max P.7 mmHg Med E/e': 8.4 Lat Peak E' Avery: 11.5 cm/sec Lat E/e': 7.0 Left Ventricle Left ventricular systolic function is normal. Ejection Fraction = 50-55%. Right Ventricle The right ventricle is normal in size and function. Atria The left atrium is mildly dilated. Mitral Valve The mitral valve is normal in structure and function. There is no mitral valve stenosis. There is mil d mitral regurgitation. Tricuspid Valve The tricuspid valve is normal in structure and function. There is mild tricuspid regurgitation. Right ventricular systolic pressure is elevated at 30-40mmHg. Aortic Valve The aortic valve opens well. No hemodynamically significant valvular aortic stenosis. No aortic regur gitation is present. Pulmonic Valve The pulmonic valve is not well seen, but is grossly normal. There is no pulmonic valvular stenosis. M ild pulmonic valvular regurgitation. Great Vessels The aortic root is normal size. Pericardium/Pleura There is no pericardial effusion. Interpretation Summary Left ventricular systolic function is normal. Ejection Fraction = 50-55%. The right ventricle is normal in size and function. The left atrium is mildly dilated. There is mild mitral regurgitation. There is mild tricuspid regurgitation. Right ventricular systolic pressure is elevated at 30-40mmHg. There is no pericardial effusion. MD Starr *Francy 08/28/2018 01:54 PM
[2018-08-28] MEDS ORDERED: cefTRIAXone SODIUM 1 GM VIAL ONE (14:06)
[2018-08-28] MEDS ORDERED: DEXTROSE 5%-WATER - 50 ML IVPB ONE (14:06)
[2018-08-28] MEDS: CEFTRIAXONE 1 GM in DEXTROSE 5%-WATER - 50 ML IVPB SCH (14:12)
[2018-08-28] MEDS: METHYL SALICYLATE/MENTHOL OINT 30 GM TUBE TP SCH ×2 (14:27→21:59)
[2018-08-29 07:10] LABS: BASO % 0.5 % (0-2.0); EOS % 1.9 % (0-4.5); HEMATOCRIT 33.4 % (32.4-45.2); HEMOGLOBIN 11.1 GM/dL (10.7-15.3); LYMPH % 26.6 % (8-40); MCH 27.2 pg (25.7-33.7); MCHC 33.3 g/dl (32.0-36.0); MEAN CELL VOLUME 81.6 fl (80-96); MEAN PLT VOLUME 9.6 fl (7.5-11.1); MONO % 7.9 % (3.8-10.2); NEUT % 63.1 % (42.8-82.8); PLATELET COUNT 172 K/MM3 (134-434); RBC 4.09 M/mm3 (3.60-5.2); RDW 15.6 % (11.6-15.6)
[2018-08-29 07:23] LABS: ALBUMIN 3.4 g/dl (3.4-5.0); ALK PHOS 73 U/L (45-117); ANION GAP 7 MMOL/L (8-16); BILIRUBIN,TOTAL 0.4 mg/dL (0.2-1); BLOOD UREA NITROGEN 10 mg/dL (7-18); CHLORIDE 104 mmol/L (98-107); CO2 28 mmol/L (21-32); CREATININE 0.5 mg/dL (0.55-1.3); GLUCOSE,RANDOM 89 mg/dL (74-106); POTASSIUM 3.3 mmol/L (3.5-5.1); SGOT/AST 23 U/L (15-37); SGPT/ALT 16 U/L (13-61); SODIUM 139 mmol/L (136-145)
[2018-08-29] MEDS ORDERED: cefTRIAXone SODIUM 1 GM VIAL ONE (08:53)
[2018-08-29] MEDS ORDERED: DEXTROSE 5%-WATER - 50 ML IVPB ONE (08:54)
[2018-08-29] MEDS: HYDROCHLOROTHIAZIDE 12.5 MG CAPSULE (FP) PO SCH (09:28)
[2018-08-29] MEDS: HEPARIN NA (PORCINE) 5,000 UNITS/ML 1ML VIAL SQ SCH ×2 (09:28→22:20)
[2018-08-29] MEDS: CEFTRIAXONE 1 GM in DEXTROSE 5%-WATER - 50 ML IVPB SCH (09:28)
[2018-08-29] MEDS: METHYL SALICYLATE/MENTHOL OINT 30 GM TUBE TP SCH ×2 (09:29→22:21)
[2018-08-29] MEDS ORDERED: POTASSIUM CHLORIDE TABS 20 MEQ TABLET.ER (FP) PO ONE (11:30)
--- NOTE | 2018-08-29 11:36 | PN ---
Progress Note, Physician History of Present Illness: C/O DIZZINESS THIS AM - Current Medication List Current Medications: Active Medications Heparin Sodium (Porcine) (Heparin -) 5,000 unit SQ BID [facility] Last Admin: 08/29/18 09:28 Dose: 5,000 unit Hydrochlorothiazide (Hctz -) 12.5 mg PO DAILY [facility] Last Admin: 08/29/18 09:28 Dose: 12.5 mg Ceftriaxone Sodium 1 gm/ (Dextrose) 50 mls @ 100 mls/hr IVPB DAILY [facility]; Protocol Last Admin: 08/29/18 09:28 Dose: 100 mls/hr Methyl Salicylate (Timothy-Sheth -) 1 applic TP BID [facility] Last Admin: 08/29/18 09:29 Dose: 1 applic - Objective Vital Signs: Vital Signs Temperature 98 F 08/29/18 10:00 Pulse Rate 74 08/29/18 10:00 Respiratory Rate 20 08/29/18 10:00 Blood Pressure 139/87 08/29/18 10:00 O2 Sat by Pulse Oximetry (%) 100 08/28/18 20:00 Respiratory: Yes: Regular, CTA Bilaterally Gastrointestinal: Yes: Normal Bowel Sounds, Soft Edema: No Neurological: Yes: Alert, Oriented Labs: CBC, BMP 08/29/18 05:30 08/29/18 05:30 INR, PTT INR 1.05 (0.83-1.09) 08/27/18 16:29 Problem List - Problems (1) Syncope Assessment/Plan: telemetry ct scan of neck disc disease neurology eval R/O prolactinoma Code(s): R55 - SYNCOPE AND COLLAPSE Qualifiers: Syncope type: unspecified Qualified Code(s): R55 - Syncope and collapse (2) Dysuria Assessment/Plan: REPEAT UA ABX Code(s): R30.0 - DYSURIA (3) Pituitary abnormality Assessment/Plan: prloactin 7 NEURO brain MRI- pituitary Code(s): 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
--- NOTE | 2018-08-29 14:02 | PN ---
Progress Note, Physician Chief Complaint: still some postural dizziness tele neg History of Present Illness: The patient is a 63-year-old female, we have a history of hypertension, now admitted with palpitations and syncope. 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 The events were witnessed by several people that stated that the patient was unresponsive for a short time. She is currently comfortable and symptom free. Denies chest pains and shortness of breath. No palpitations. There no evidence of ischemia nor acute coronary syndrome. No CHF. The patient is in sinus rhythm. There are no acute ECG changes. Echo 08/28/18 normal EF mild mr/tr pap 30-40 - Current Medication List Current Medications: Active Medications Heparin Sodium (Porcine) (Heparin -) 5,000 unit SQ BID [facility] Last Admin: 08/29/18 09:28 Dose: 5,000 unit Hydrochlorothiazide (Hctz -) 12.5 mg PO DAILY [facility] Last Admin: 08/29/18 09:28 Dose: 12.5 mg Ceftriaxone Sodium 1 gm/ (Dextrose) 50 mls @ 100 mls/hr IVPB DAILY [facility]; Protocol Last Admin: 08/29/18 09:28 Dose: 100 mls/hr Methyl Salicylate (Timothy-Sheth -) 1 applic TP BID [facility] Last Admin: 08/29/18 09:29 Dose: 1 applic - Objective Vital Signs: Vital Signs Temperature 98 F 08/29/18 10:00 Pulse Rate 74 08/29/18 10:00 Respiratory Rate 20 08/29/18 10:00 Blood Pressure 139/87 08/29/18 10:00 O2 Sat by Pulse Oximetry (%) 100 08/28/18 20:00 Constitutional: Yes: No Distress, Calm Eyes: Yes: Conjunctiva Clear, EOM Intact HENT: Yes: Atraumatic, Normocephalic Neck: Yes: Trachea Midline Cardiovascular: Yes: Regular Rate and Rhythm Respiratory: Yes: CTA Bilaterally Gastrointestinal: Yes: Normal Bowel Sounds, Soft Extremities: Yes: WNL Edema: No Peripheral Pulses WNL: Yes Labs: CBC, BMP 08/29/18 05:30 08/29/18 05:30 INR, PTT INR 1.05 (0.83-1.09) 08/27/18 16:29 Assessment/Plan The patient is a 63-year-old female, we have a history of hypertension, now admitted with palpitations and syncope. 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 The events were witnessed by several people that stated that the patient was unresponsive for a short time. She is currently comfortable and symptom free. Denies chest pains and shortness of breath. No palpitations. Syncope--There is no evidence of ischemia nor acute coronary syndrome. No CHF. The patient is in sinus rhythm. There are no acute ECG changes. No significant events noted on telemetry. Would start Norvasc 5 mg daily for better blood pressure control Echo is normal. The patient is stable. DC telemetry. Will follow as needed.
--- NOTE | 2018-08-29 14:39 | EKG ---
Test Reason : Blood Pressure : / mmHG Vent. Rate : 069 BPM Atrial Rate : 069 BPM P-R Int : 144 ms QRS Dur : 074 ms QT Int : 386 ms P-R-T Axes : -05 011 007 degrees QTc Int : 413 ms NORMAL SINUS RHYTHM NORMAL ECG WHEN COMPARED WITH ECG OF 27-AUG-2018 19:12, SINUS RHYTHM HAS REPLACED JUNCTIONAL RHYTHM Confirmed by Michael Levy MD ([id number]) on 08/29/2018 2:39:06 PM Referred By: Hayes GLORIA Confirmed By:Michael Levy MD
[2018-08-30] MEDS ORDERED: DEXTROSE 5%-WATER - 50 ML IVPB ONE (08:56)
[2018-08-30] MEDS ORDERED: cefTRIAXone SODIUM 1 GM VIAL ONE (08:56)
[2018-08-30] MEDS: CEFTRIAXONE 1 GM in DEXTROSE 5%-WATER - 50 ML IVPB SCH (09:26)
[2018-08-30] MEDS: HYDROCHLOROTHIAZIDE 12.5 MG CAPSULE (FP) PO SCH (09:26)
[2018-08-30] MEDS: HEPARIN NA (PORCINE) 5,000 UNITS/ML 1ML VIAL SQ SCH ×2 (09:26→21:32)
[2018-08-30] MEDS: METHYL SALICYLATE/MENTHOL OINT 30 GM TUBE TP SCH ×2 (09:27→21:32)
--- NOTE | 2018-08-30 11:49 | CON.NEURO ---
Consult - Past Medical History Cardio/Vascular: Yes: HTN - Alcohol/Substance Use Hx Alcohol Use: No - Smoking History Smoking history: Never smoked Have you smoked in the past 12 months: No Home Medications - Allergies Allergies/Adverse Reactions: Allergies Allergy/AdvReac Type Severity Reaction Status Date / Time vancomycin Allergy Unknown Verified 08/27/18 13:32 - Home Medications Home Medications: Ambulatory Orders Hydrochlorothiazide [Hctz -] 12.5 mg PO DAILY 05/11/17 Physical Exam-Neuro Vital Signs: Vital Signs Temperature 98.1 F 08/30/18 10:00 Pulse Rate 73 08/30/18 10:00 Respiratory Rate 18 08/30/18 10:00 Blood Pressure 137/67 08/30/18 10:00 O2 Sat by Pulse Oximetry (%) 99 08/30/18 04:00 Labs: CBC, BMP 08/29/18 05:30 08/29/18 05:30 INR, PTT INR 1.05 (0.83-1.09) 08/27/18 16:29 Assessment/Plan cc Episode of syncope HPI 63 year old female history of forgetfullness was called to see for Syncope. Patient has history of htn, dm, and gastric bypass. As per patient after gastric bypass her diabetes got better. She has episode of passing out , she was feeling dizzy and everything is darkening. Her was holding her and she did not fell on the floor. Her ct scan of brain is normal. She is being monitored in tele floor. Patient denies any fall since she get to hospital. She denies any focal neruological syptoms. There was no family member to verify memory difficulty. PMH as above. PSH: Gastric Bypass Social Hx: Denies smoking, drinking, or other substance usage. Allergies: Vancomycin Allergies/Adverse Reactions: Allergies Allergy/AdvReac Type Severity Reaction Status Date / Time vancomycin Allergy Unknown Verified 08/27/18 13:32 Home Medications Hydrochlorothiazide [Hctz -] 12.5 mg PO DAILY 05/11/17 POLINA ARRIOLA reviewed in chart NEUROLOGICAL EXAMIATNION Alert oriented x 2, she could tell this is aug 2018 but could not tell day of the week or date. she knows she is at [employer]. speech is normal, no neck stiffness eomi, pupils reactive, no face asymmetry motor 5/5 all ext . sensation is noraml gait and coordination is normal CT head is normal vitamin b12 is 326 Assessment/Plan 63 year old female history of htn, came with syncope, clinically less likley to be Epileptic seizure. 2. Memory difficulty , would need more assessment outpatient and confirm functional activities by Plan: I would add EEG -Follow up on mri brain - vitamin b12 supplementation -follow up outpatient Thanking you so much Talha Love MD
--- NOTE | 2018-08-30 12:02 | PN ---
Progress Note, Physician History of Present Illness: C/O DIZZINESS THIS AM STATES ACTIVITY LIMITED DUE TO DIZZINESS - Current Medication List Current Medications: Active Medications Cyanocobalamin (Vitamin B12 -) 1,000 mcg PO DAILY [facility] Heparin Sodium (Porcine) (Heparin -) 5,000 unit SQ BID [facility] Last Admin: 08/30/18 09:26 Dose: 5,000 unit Meclizine HCl (Antivert -) 12.5 mg PO Q6HPO [facility] Methyl Salicylate (Timothy-Sheth -) 1 applic TP BID [facility] Last Admin: 08/30/18 09:27 Dose: 1 applic - Objective Vital Signs: Vital Signs Temperature 98.1 F 08/30/18 10:00 Pulse Rate 73 08/30/18 10:00 Respiratory Rate 18 08/30/18 10:00 Blood Pressure 137/67 08/30/18 10:00 O2 Sat by Pulse Oximetry (%) 99 08/30/18 04:00 Cardiovascular: Yes: Regular Rate and Rhythm Respiratory: Yes: Regular, CTA Bilaterally Gastrointestinal: Yes: Normal Bowel Sounds, Soft Labs: CBC, BMP 08/29/18 05:30 08/29/18 05:30 INR, PTT INR 1.05 (0.83-1.09) 08/27/18 16:29 Problem List - Problems (1) Syncope Assessment/Plan: telemetry ct scan of neck disc disease neurology eval R/O prolactinoma MRI PENDING Code(s): R55 - SYNCOPE AND COLLAPSE Qualifiers: Syncope type: unspecified Qualified Code(s): R55 - Syncope and collapse (2) Dysuria Assessment/Plan: REPEAT UA DC ABX Code(s): R30.0 - DYSURIA (3) Pituitary abnormality Assessment/Plan: prloactin 7 NEURO brain MRI- pituitary Code(s): 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 (4) Dizziness Assessment/Plan: ADD MECLIZINE MRI PENDING PT Code(s): R42 - DIZZINESS AND GIDDINESS
[2018-08-30] MEDS: MECLIZINE HCL 12.5 MG TABLET PO SCH ×2 (13:28→17:03)
[2018-08-30] MEDS: CYANOCOBALAMIN 1,000 MCG TABLET (FP) PO SCH (13:28)
[2018-08-31] MEDS: MECLIZINE HCL 12.5 MG TABLET PO SCH ×4 (00:17→17:22)
[2018-08-31] MEDS: HEPARIN NA (PORCINE) 5,000 UNITS/ML 1ML VIAL SQ SCH ×2 (09:00→22:28)
[2018-08-31] MEDS: METHYL SALICYLATE/MENTHOL OINT 30 GM TUBE TP SCH ×2 (09:01→22:28)
[2018-08-31] MEDS: CYANOCOBALAMIN 1,000 MCG TABLET (FP) PO SCH (09:01)
--- NOTE | 2018-08-31 12:32 | CONS ---
DATE OF CONSULTATION: 08/31/2018 REFERRING PHYSICIAN: Gayle Aldana MD HISTORY OF PRESENT ILLNESS: The patient is a 63-year-old woman with past medical history of hypertension, gastric bypass surgery, who was admitted following a syncopal episode. Patient evidently lost consciousness but did not fall, was brought by her . On admission, she underwent a CT of the head, which showed a mild pituitary enlargement but no acute intracranial pathology. CT of the cervical spine showed multilevel degenerative disk and facet changes with moderate to marked degenerative disk disease with disk space narrowing at C3-4 and C4-5. X-rays of the coccyx and lumbosacral spine showed grade 1 spondylolisthesis of L4 and L5 as well as degenerative disk disease at L5-S1, no fractures, SI joint symmetric. Blood work on admission demonstrated WBCs normal, 6.4, hemoglobin 11.8, platelet count over 180,000, INR was normal at 1.05, and chemistry showed BUN 12, creatinine 0.6, sodium 140, potassium 4.2, chloride 106, CO2 29. B12 was low normal at 326, folate elevated to 18. She is pending B3 and B6 levels. Her prolactin level was normal. TSH was normal at 0.70. On August 28, her sodium was slightly low at 3.3, but otherwise chemistry within normal limits. Patient was seen by Physical Therapy, but did develop some lightheadedness. She transferred sit to stand with contact guard but did not ambulate due to the lightheadedness. Supine to sit with supervision. She feels much better today and is ambulating without assistive device and is seen in rehabilitation evaluation. REVIEW OF PAST MEDICAL AND SURGICAL HISTORY: Hypertension, gastric bypass surgery. SOCIAL HISTORY: She works, lives with her in an apartment with an elevator for access. Premorbidly completely independent, ambulatory without assistive device. REVIEW OF SYSTEMS: No current dizziness, lightheadedness. No headache. No blurry vision, double vision. No nausea, vomiting, difficulty swallowing, difficulty chewing. No chest pain, shortness of breath, fever, chills, bowel or bladder incontinence, gait instability. No numbness or tingling of the upper or lower extremities. No joint arthralgias. No weight loss, weight gain. No fever or chills. No skin rash. On examination, a well-developed, well-nourished woman, who is seen both sitting, standing, and ambulating. HEENT: She is normocephalic and atraumatic. Her extraocular muscles appear intact. She has no obvious facial weakness, no ulcers. Dry mucous membranes. Neck is supple. Extremities without any pitting edema or calf tenderness. Skin without any rash or breakdown. NEUROMUSCULAR: She is awake, alert, oriented x3. Cranial nerves 2-12 grossly intact. She has good strength and motor power in the upper and lower extremities. No gross arthritic change. Good joint stability. Normal symmetric reflexes. Normal sensation to light touch and pinprick. She has good standing balance. She can walk heel-to-toe without any loss of balance, and her gait is steady without device. OVERALL IMPRESSION: 1. Status post syncopal episode. 2. Status post deficits in mobility and activities of daily living. 3. Status post lightheadedness. 4. Hyponatremia. 5. History of gastric bypass. 6. History of hypertension. 7. Borderline B12 level. PLAN, SUGGESTION: 1. Physical therapy, to continue with mobilization, although she appears extremely steady, and from a rehab standpoint, ready for discharge. 2. Continue out of bed to chair. 3. Encourage p.o. fluids and normal diet. 4. Medical followup regarding discharge planning. 5. Will probably not need any follow up rehab services. 6. Consider repleting B12. 7. Check B3 and B6 levels. Thank you for this referral. COCO MONTELONGO M.D. JOSUE/[id number]
--- NOTE | 2018-08-31 14:39 | PN ---
Progress Note, Physician Chief Complaint: patient seen and examined MRI done today no distress - Current Medication List Current Medications: Active Medications Cyanocobalamin (Vitamin B12 -) 1,000 mcg PO DAILY [facility] Last Admin: 08/31/18 09:01 Dose: 1,000 mcg Heparin Sodium (Porcine) (Heparin -) 5,000 unit SQ BID [facility] Last Admin: 08/31/18 09:00 Dose: 5,000 unit Meclizine HCl (Antivert -) 12.5 mg PO Q6HPO [facility] Last Admin: 08/31/18 12:16 Dose: 12.5 mg Methyl Salicylate (Timothy-Sheth -) 1 applic TP BID [facility] Last Admin: 08/31/18 09:01 Dose: 1 applic - Objective Vital Signs: Vital Signs Temperature 98 F 08/31/18 09:00 Pulse Rate 70 08/31/18 09:00 Respiratory Rate 18 08/31/18 09:00 Blood Pressure 130/70 08/31/18 09:00 O2 Sat by Pulse Oximetry (%) 98 08/31/18 04:00 Constitutional: Yes: Calm Cardiovascular: Yes: Regular Rate and Rhythm, S1, S2 Respiratory: Yes: CTA Bilaterally Gastrointestinal: Yes: Normal Bowel Sounds, Soft Edema: No Neurological: Yes: Alert, Oriented Labs: CBC, BMP 08/29/18 05:30 08/29/18 05:30 INR, PTT INR 1.05 (0.83-1.09) 08/27/18 16:29 Problem List - Problems (1) Syncope Assessment/Plan: telemetry ct scan of neck disc disease neurology eval noted prolactinona- MRI noted for macroadenoma on left side crossing midline endocrine evaluation Code(s): R55 - SYNCOPE AND COLLAPSE Qualifiers: Syncope type: unspecified Qualified Code(s): R55 - Syncope and collapse (2) Dysuria Assessment/Plan: awaiting culture rocephin renal sono r/p pyelonephritis ivf anand resend Urine culutre Code(s): R30.0 - DYSURIA (3) Pituitary abnormality Assessment/Plan: prloactin ordered brain MRI- pituatrty macradenoma noted encodrine eval SATINDER consult Code(s): 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
[2018-08-31 15:57] LABS: ANION GAP 9 MMOL/L (8-16); BLOOD UREA NITROGEN 23 mg/dL (7-18); CALCIUM 9.4 mg/dL (8.5-10.1); CHLORIDE 106 mmol/L (98-107); CO2 26 mmol/L (21-32); CREATININE 0.9 mg/dL (0.55-1.3); GLUCOSE,RANDOM 131 mg/dL (74-106); POTASSIUM 3.9 mmol/L (3.5-5.1); SODIUM 141 mmol/L (136-145)
--- NOTE | 2018-08-31 19:56 | CONSULT ---
Consult - text type - Consultation Consultation Note: NEUROSURGERY CONSULTATION Obdulia Villa is a 63 year old female who presented to the ER several days ago with a chief complaint of neck and back pain. She had a sudden onset of lightheadedness and this was associated with a brief loss of consciousness and a fall. The neck and back pains manifested after this fall. She described feeling weak and presented to the [facility] ER. 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 The rostral aspect of the mass abuts the optic chiasm. 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 The pratibha AP canal diameter is 6.5mm which is concerning since soft tissue will likely contribute to even greater stenosis at this and other levels. - Formal Visual aparicio - Endocrinological evaluation with full Pituitary Panel - MRI Cervical (ordered) - GI/DVT prophylaxis
--- NOTE | 2018-09-01 00:06 | CONSULT ---
Consult Consult Specialty:: endocrine Referred by:: dr.saba jackson Reason for Consultation:: pituitary adenoma - History of Present Illness Chief Complaint: syncope History of Present Illness: 63 year old female with a significant PMH of DM2,HTN,, gastric bypass, migraines who presents to the emergency department with an episode of dizziness earlier today. 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 Patient states she felt "her back pulled" and has been experiencing back pain since then. Patient had another slip and fall 2 weeks ago, in which she slipped on a crack on the ground. Patient denies any head trauma or loss of consciousness both times. Today, the patient reports she fell again and did not hit the ground.ct brain showed possible pituitary lesion, which mri confirmed pituitary lesion 10mm in max dimension.she denies vision loss nausea or vomiting - Past Medical History Cardio/Vascular: Yes: HTN - Alcohol/Substance Use Hx Alcohol Use: No - Smoking History Smoking history: Never smoked Have you smoked in the past 12 months: No Home Medications - Allergies Allergies/Adverse Reactions: Allergies Allergy/AdvReac Type Severity Reaction Status Date / Time vancomycin Allergy Unknown Verified 08/27/18 13:32 - Home Medications Home Medications: Ambulatory Orders Hydrochlorothiazide [Hctz -] 12.5 mg PO DAILY 05/11/17 Review of Systems - Review of Systems Constitutional: reports: Weakness Eyes: reports: No Symptoms HENT: reports: No Symptoms Neck: reports: Stiffness Cardiovascular: reports: No Symptoms Respiratory: reports: No Symptoms Gastrointestinal: reports: No Symptoms Genitourinary: reports: No Symptoms Musculoskeletal: reports: No Symptoms Endocrine: reports: No Symptoms Physical Exam Vital Signs: Vital Signs Temperature 98.4 F 08/31/18 20:10 Pulse Rate 84 08/31/18 20:10 Respiratory Rate 20 08/31/18 20:29 Blood Pressure 146/75 08/31/18 20:10 O2 Sat by Pulse Oximetry (%) 100 08/31/18 20:29 Constitutional: Yes: Calm Eyes: Yes: EOM Intact HENT: Yes: Normocephalic Neck: Yes: Trachea Midline Cardiovascular: Yes: Regular Rate and Rhythm Respiratory: Yes: CTA Bilaterally Gastrointestinal: Yes: Normal Bowel Sounds ...Rectal Exam: Yes: Deferred Renal/: Yes: WNL Musculoskeletal: Yes: WNL Extremities: Yes: WNL Neurological: Yes: Alert, Oriented Labs: CBC, BMP 08/29/18 05:30 08/31/18 14:50 Problem List - Problems (1) Dizziness Code(s): R42 - DIZZINESS AND GIDDINESS (2) Dysuria Code(s): R30.0 - DYSURIA (3) Pituitary abnormality Code(s): 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 (4) Syncope Code(s): R55 - SYNCOPE AND COLLAPSE Qualifiers: Syncope type: unspecified Qualified Code(s): R55 - Syncope and collapse (5) Migraine Code(s): G43.909 - MIGRAINE, UNSP, NOT INTRACTABLE, WITHOUT STATUS MIGRAINOSUS Qualifiers: Migraine type: other Status migrainosus presence: without status migrainosus Intractability: not intractable Qualified Code(s): G43.809 - Other migraine, not intractable, without status migrainosus (6) Myalgia Code(s): M79.1 - MYALGIA * DO NOT USE * Assessment/Plan Current Active Problems Dizziness (Acute) Dysuria (Acute) Pituitary abnormality (Acute) Syncope (Acute) pituitary adenoma 10mm/macro Abnormal Lab Results 08/31/18 14:50 BUN 23 H Random Glucose 131 H Laboratory Results - last 24 hr 08/31/18 14:50 Sodium 141 Potassium 3.9 Chloride 106 Carbon Dioxide 26 Anion Gap 9 BUN 23 H Creatinine 0.9 Creat Clearance w eGFR > 60 Random Glucose 131 H Calcium 9.4 Laboratory Tests 08/28/18 08/28/18 08/31/18 06:00 10:50 14:50 Sodium 141 Potassium 3.9 Chloride 106 Carbon Dioxide 26 Anion Gap 9 BUN 23 H Creatinine 0.9 Creat Clearance w eGFR > 60 Random Glucose 131 H TSH 0.70 Prolactin 7.2 plan: cortisol acth igf 1 growth hormone visual field exam cosyntropin stim test asses pit adrenal axis
[2018-09-01] MEDS: MECLIZINE HCL 12.5 MG TABLET PO SCH ×5 (01:01→23:12)
[2018-09-01] MEDS ORDERED: COSYNTROPIN 0.25 MG VIAL IVPUSH ONE (07:00)
[2018-09-01] MEDS: CYANOCOBALAMIN 1,000 MCG TABLET (FP) PO SCH (09:46)
--- NOTE | 2018-09-01 09:46 | PN ---
Progress Note, Physician - Current Medication List Current Medications: Active Medications Cyanocobalamin (Vitamin B12 -) 1,000 mcg PO DAILY [facility] Last Admin: 08/31/18 09:01 Dose: 1,000 mcg Heparin Sodium (Porcine) (Heparin -) 5,000 unit SQ BID [facility] Last Admin: 08/31/18 22:28 Dose: 5,000 unit Meclizine HCl (Antivert -) 12.5 mg PO Q6HPO [facility] Last Admin: 09/01/18 06:19 Dose: 12.5 mg Methyl Salicylate (Timothy-Sheth -) 1 applic TP BID [facility] Last Admin: 08/31/18 22:28 Dose: 1 applic - Objective Vital Signs: Vital Signs Temperature 98 F 09/01/18 09:45 Pulse Rate 87 09/01/18 09:45 Respiratory Rate 20 09/01/18 09:45 Blood Pressure 145/100 09/01/18 09:45 O2 Sat by Pulse Oximetry (%) 100 08/31/18 20:29 Cardiovascular: Yes: Regular Rate and Rhythm Respiratory: Yes: Regular, CTA Bilaterally Gastrointestinal: Yes: Normal Bowel Sounds, Soft Labs: CBC, BMP 08/29/18 05:30 08/31/18 14:50 INR, PTT INR 1.05 (0.83-1.09) 08/27/18 16:29 Problem List - Problems (1) Syncope Assessment/Plan: telemetry ct scan of neck disc disease neurology eval Code(s): R55 - SYNCOPE AND COLLAPSE Qualifiers: Syncope type: unspecified Qualified Code(s): R55 - Syncope and collapse (2) Dysuria Code(s): R30.0 - DYSURIA (3) Pituitary abnormality Assessment/Plan: neurology eval noted prolactinona- MRI noted for macroadenoma on left side crossing midline endocrine evaluation prloactin ordered SATINDER consult noted Code(s): 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 (4) Dizziness Code(s): R42 - DIZZINESS AND GIDDINESS
[2018-09-01] MEDS: HEPARIN NA (PORCINE) 5,000 UNITS/ML 1ML VIAL SQ SCH ×2 (09:47→22:06)
[2018-09-01] MEDS: METHYL SALICYLATE/MENTHOL OINT 30 GM TUBE TP SCH ×2 (09:48→22:14)
--- NOTE | 2018-09-01 10:32 | PN ---
Progress Note (short form) - Note Progress Note: Patient is Neurologically stable. MRI Cervical pending. Patient undergoing formal Endocrinological and Ophthalmological evaluation of Pitutary Adenoma. Neck and Back pain likely associated with identified pathology in Cervical and Lumbar regions. Patient is eager to be discharged. From a Neurosurgical standpoint, this workup can be completed as an outpatient. My office is willing to coordinate imaging and followup.
--- NOTE | 2018-09-01 11:52 | PN ---
Progress Note (short form) - Note Progress Note: 63 year old female history of forgetfullness was called to see for Syncope. Patient has history of htn, dm, and gastric bypass. As per patient after gastric bypass her diabetes got better. She has episode of passing out , she was feeling dizzy and everything is darkening. Her was holding her and she did not fell on the floor. Her ct scan of brain is normal. She is being monitored in tele floor. Patient denies any fall since she get to hospital. She denies any focal neruological syptoms. There was no family member to verify memory difficulty. Patient has mri of brain showed, there is pituitary adenoma. She has not had any seizure or syncopal episode since admission. There is no visual symptoms. NEUROLOGICAL EXAMIATNION Alert oriented x 2 and follow command speech is normal, no neck stiffness eomi, pupils reactive, no face asymmetry, VF normal by confrontation motor 5/5 all ext . sensation is noraml gait and coordination is normal CT head is normal vitamin b12 is 326 MRI of brain reviewed showed there is pituitary adenoma Assessment/Plan 63 year old female history of htn, came with syncope, clinically less likley to be Epileptic seizure. 2. Memory difficulty , would need more assessment outpatient and confirm functional activities by 3. PItuitary adenoma : vf normal by confrontation and VF can be done outpatient , Endocrine consult and neurosurgery consult appreciated Plan : EEG was done , I would follow up on eeg, in the mean time, patient is cleared from neuro point of view to be discharged and follow up outpatient Thanking you so much Kameron Love MD
[2018-09-01] MEDS ORDERED: PT OWN MED DRAWER 7, Y5N ONE (20:59)
[2018-09-02] MEDS: MECLIZINE HCL 12.5 MG TABLET PO SCH (06:09)
[2018-09-02] MEDS ORDERED: PT OWN MED DRAWER 7, Y5N ONE ×3 (06:17→09:40)
--- NOTE | 2018-09-02 09:21 | DS ---
Physical Examination Vital Signs: Vital Signs Temperature 97.7 F 09/02/18 07:00 Pulse Rate 73 09/02/18 07:00 Respiratory Rate 18 09/02/18 07:00 Blood Pressure 125/69 09/02/18 07:00 O2 Sat by Pulse Oximetry (%) 99 09/02/18 05:00 Findings/Remarks: WORKUP OUTPATIENT FEELS BETTER NAD Constitutional: Yes: No Distress Eyes: Yes: WNL HENT: Yes: WNL Neck: Yes: WNL Cardiovascular: Yes: WNL Respiratory: Yes: WNL Gastrointestinal: Yes: WNL Musculoskeletal: Yes: Muscle Weakness Extremities: Yes: WNL Edema: No Peripheral Pulses WNL: Yes Integumentary: Yes: WNL Wound/Incision: Yes: Clean/Dry Neurological: Yes: Pre-Existing Deficit ...Motor Strength: WNL Psychiatric: Yes: WNL Labs: CBC, BMP 08/29/18 05:30 08/31/18 14:50 Discharge Summary Reason For Visit: SYNCOPE Current Active Problems Dizziness (Acute) Dysuria (Acute) Pituitary abnormality (Acute) Syncope (Acute) Hospital Course: ADMITTED FOR NEUROLOGY WORKUP, NO ACUTE CHANGES F/U OUTPATIENT Condition: Good - Instructions Diet, Activity, Other Instructions: SEE YOUR DOCTOR IN 1-2 DAYS NEUROLOGY F/U WITH DR LACY Disposition: HOME - Home Medications Comprehensive Discharge Medication List: Ambulatory Orders Hydrochlorothiazide [Hctz -] 12.5 mg PO DAILY 05/11/17
[2018-09-02] MEDS: CYANOCOBALAMIN 1,000 MCG TABLET (FP) PO SCH (09:43)
[2018-09-02] MEDS: METHYL SALICYLATE/MENTHOL OINT 30 GM TUBE TP SCH (09:43)
[2018-09-02] MEDS: HEPARIN NA (PORCINE) 5,000 UNITS/ML 1ML VIAL SQ SCH (09:43)
[2018-09-02 10:45] VITALS: BP 134/75; PULSE 64; TEMP 98.5
--- NOTE | 2018-09-02 14:47 | PN ---
Progress Note (short form) - Note Progress Note: 63 year old female history of forgetfullness was called to see for Syncope. Patient has history of htn, dm, and gastric bypass. As per patient after gastric bypass her diabetes got better. She has episode of passing out , she was feeling dizzy and everything is darkening. Her was holding her and she did not fell on the floor. Her ct scan of brain is normal. She is being monitored in tele floor. Patient denies any fall since she get to hospital. She denies any focal neruological syptoms. There was no family member to verify memory difficulty. Patient has mri of brain showed, there is pituitary adenoma. She has not had any seizure or syncopal episode since admission. There is no visual symptoms. no new focla neurological symptoms NEUROLOGICAL EXAMIATNION Alert oriented x 2 and follow command speech is normal, no neck stiffness eomi, pupils reactive, no face asymmetry, VF normal by confrontation motor 5/5 all ext . sensation is noraml gait and coordination is normal CT head is normal vitamin b12 is 326 MRI of brain reviewed showed there is pituitary adenoma Assessment/Plan 63 year old female history of htn, came with syncope, clinically less likley to be Epileptic seizure. 2. Memory difficulty , would need more assessment outpatient and confirm functional activities by 3. PItuitary adenoma : vf normal by confrontation and VF can be done outpatient , Endocrine consult and neurosurgery consult appreciated follow up outpatient Thanking you so much Kameron Love MD
== END 2018-09-02 11:33 | disposition home or self-care (01) | DRG 312 ==
LOC: JERFT 13:17 → JER 13:17 → JERBED 20:50 → J4W 08-28 06:07 → OBSVTOIN 08-28 13:31 → J7W 09-01 11:52
PROVIDERS: ADMIT Internal Medicine; ATTEND Family Medicine
DX: R55 Syncope and collapse (principal); N17.9 Acute kidney failure, unspecified; M54.5 Low back pain; Z98.84 Bariatric surgery status; E11.9 Type 2 diabetes mellitus without complications; I10 Essential (primary) hypertension; F03.90 Unspecified dementia, unspecified severity, without behavioral disturbance, psychotic disturbance, mood disturbance, and anxiety; G43.909 Migraine, unspecified, not intractable, without status migrainosus; R29.6 Repeated falls; M50.23 Other cervical disc displacement, cervicothoracic region; S09.90XA Unspecified injury of head, initial encounter; W18.39XA Other fall on same level, initial encounter; Y93.89 Activity, other specified; Y92.69 Other specified industrial and construction area as the place of occurrence of the external cause; Y99.0 Civilian activity done for income or pay; R00.2 Palpitations; D35.2 Benign neoplasm of pituitary gland; R41.3 Other amnesia
CPT/HCPCS: 36415; 70450-TC; 70553-TC; 71046-TC-FY; 72100-TC-FY; 72125-TC; 72141-TC; 72220-TC-FY; 76775-TC; 80048; 80053; 81003; 81015; 82024; 82533; 82550; 82553; 82607; 82746; 83003; 83520; 83735; 84146; 84207; 84305; 84443; 84484; 85025; 85027; 85610; 87086; 90688; 90732; 93005; 93010; 93306-TC; 95816; 97161-GP; 99283-25; C1887; G0008; G0009; G0378; J0131; J0833; J1644; J7030

== ENCOUNTER 2019-06-18 11:23 | Emergency (ER) | payer BC ==
[2019-06-18 11:38] VITALS: BP 131/69; PULSE 70; TEMP 98.8; BMI 22.6
[2019-06-18] MEDS ORDERED: ACETAMINOPHEN 325 MG TABLET (FP) PO ONE (11:55)
--- NOTE | 2019-06-18 11:58 | PDOC ---
History of Present Illness - General Chief Complaint: Cold Symptoms Stated Complaint: COUGHING/HEADACHE/VOMITING Time Seen by Provider: 06/18/19 11:40 History Source: Patient, Old Records Exam Limitations: No Limitations - History of Present Illness Initial Comments: 06/18/19 11:56 HISTORY OF PRESENT ILLNESS: Is a 64-year-old woman past medical history of hypertension and diet-controlled diabetes who presents to the emergency department for evaluation of 1 week of subjective fevers, moist cough, posttussive vomiting, sore throat and posttussive headaches. Patient reports having occasional intermittent dysuria over that time. She reports taking Motrin for pain earlier today which is kept her symptoms so minimal. No recent travel or sick contacts. PAST MEDICAL HISTORY: Hypertension, [id number] SURGICAL HISTORY: Denies ALLERGIES: Vancomycin REVIEW OF SYSTEMS General/Constitutional: +fever. Denies weakness, weight change. HEENT: Denies change in vision. Denies ear pain or discharge. +sore throat. Cardiovascular: Denies chest pain or shortness of breath. Respiratory: Moist productive cough. Denies wheezing, or hemoptysis. Gastrointestinal: Denies nausea, vomiting, diarrhea or constipation. Denies rectal bleeding. Genitourinary: Occasional dysuria Musculoskeletal: +myalgias. Denies neck or back pain. Skin and breasts: Denies rash or easy bruising. Neurologic: Denies headache, vertigo, loss of consciousness, or loss of sensation. Psychiatric: Denies depression or anxiety. Endocrine: Denies increased thirst. Denies abnormal weight change. Hematologic/Lymphatic: Denies anemia, easy bleeding, or history of blood clots. Allergic/Immunologic: Denies hives or skin allergy. Denies latex allergy. PHYSICAL EXAM General Appearance: Well-appearing, appropriately dressed. No apparent distress , no intoxication. HEENT: EOMI, PERRLA, normal voice, TMs retracted bilaterally. No conjunctival pallor. No photophobia, scleral icterus. Oropharynx erythematous without lesions or exudate. Cobblestoning noted in the posterior. No nasal discharge present. Neck: Supple. Trachea midline. No tenderness, rigidity, carotid bruit, stridor , or thyromegaly. Nontender anterior cervical lymphadenopathy present. Respiratory/Chest: Lungs CTAB. No shortness of breath, chest tenderness, respiratory distress, accessory muscle use. No crackles, rales, rhonchi, stridor , wheezing, dullness Cardiovascular: RRR. S1, S2. No JVD, murmur, bradycardia, tachycardia. Vascular Pulses: Dorsalis-Pedis (R): 2+, Dorsalis-Pedis (L): 2+ Gastrointestinal/Abdominal: Normal bowel sounds. Abdomen soft, non-distended. Suprapubic tenderness. No rebound tenderness. No organomegaly, pulsatile mass, guarding, hernia, hepatomegaly, splenomegaly. Musculoskeletal/Extremities: Normal inspection. FROM of all extremities, normal capillary refill. Pelvis Stable. No CVA tenderness. No tenderness to extremities, pedal edema, swelling, erythema or deformity. Integumentary: Appropriate color, dry, warm. No cyanosis, erythema, jaundice or rash Neurologic: director case II-XII intact. Fully oriented, alert. Appropriate mood/affect. Motor strength 5/5. No appreciable EOM palsy, facial droop or sensory deficit. Past History - Past Medical History Allergies/Adverse Reactions: Allergies Allergy/AdvReac Type Severity Reaction Status Date / Time vancomycin Allergy Unknown Verified 06/18/19 11:38 Home Medications: Ambulatory Orders Hydrochlorothiazide [Hctz -] 12.5 mg PO DAILY 05/11/17 Benzonatate [Tessalon Pearls -] 200 mg PO TID #42 cap 06/18/19 COPD: No HTN: Yes - Surgical History Abdominal Surgery: Yes (gastric bypass) - Psycho Social/Smoking Cessation Hx Smoking History: Never smoked Have you smoked in the past 12 months: No Hx Alcohol Use: No Drug/Substance Use Hx: No Substance Use Type: None Hx Substance Use Treatment: No *Physical Exam - Vital Signs Last Vital Signs Temp Pulse Resp BP Pulse Ox 98.8 F 70 18 131/69 100 06/18/19 11:34 06/18/19 11:34 06/18/19 11:34 06/18/19 11:34 06/18/19 11:34 Medical Decision Making - Medical Decision Making 06/18/19 11:58 A/P: 64-year-old woman with 5 days of upper respiratory type symptoms with occasional dysuria Physical exam is consistent with a viral illness possible influenza but given the patient is outside the window will defer testing at this time Urinalysis Urine culture Tylenol 650 mg orally now Reassess Discharge - Discharge Information Problems reviewed: Yes Clinical Impression/Diagnosis: Upper respiratory infection Qualifiers: URI type: unspecified viral URI Qualified Code(s): J06.9 - Acute upper respiratory infection, unspecified Condition: Stable Disposition: HOME - Admission No - Additional Discharge Information Prescriptions: Benzonatate [Tessalon Pearls -] 200 mg PO TID #42 cap - Follow up/Referral Referrals: Jovita Maxwell MD [Primary Care Provider] - - Patient Discharge Instructions Additional Instructions: Rest, drink lots of fluids: Teas, water, soups, Pedialyte Saltwater gargles Steamy showers/seem to face break up mucus Avoid contact with others until fevers and cough resolved Lots of handwashing and good hygiene Continue [id number] medications for symptomatic relief Tylenol or Motrin for fever and pain Followup with private physician in one to 2 days as needed Return to emergency department for worsened symptoms, fevers, dehydration - Post Discharge Activity
[2019-06-18] MEDS ORDERED: ACETAMINOPHEN 325 MG TABLET (FP) ONE (12:07)
[2019-06-18 12:50] LABS: EPI CELLS 7.1 /HPF (0-5/HPF); HYALINE CASTS 17 /lpf (0-8); URINE APPEARANCE CLEAR; URINE BACTERIA 2.7 /hpf (NEGATIVE); URINE BILIRUBIN 1+ (NEGATIVE); URINE COLOR DK YELLOW; URINE GLUCOSE (UA) NEGATIVE (NEGATIVE); URINE KETONE NEGATIVE (NEGATIVE); URINE LEUK ESTERASE TRACE (NEGATIVE); URINE NITRITE NEGATIVE (NEGATIVE); URINE PROTEIN NEGATIVE (NEGATIVE); URINE RBC 5 /hpf (0-4); URINE WBC 2 /hpf (0-5)
[2019-06-18] MEDS ORDERED: guaiFENesin/CODEINE 10 ML UNIT-DOSE CUPS PO ONE (12:56)
[2019-06-18] MEDS ORDERED: guaiFENesin/D-METHORPHAN HB 10 ML UNIT-DOSE CUPS ONE (13:02)
[2019-06-18] MEDS ORDERED: guaiFENesin/D-METHORPHAN HB 10 ML UNIT-DOSE CUPS PO ONE (13:25)
== END 2019-06-18 13:28 | disposition home or self-care (01) ==
LOC: JERFT 11:23
DX: J06.9 Acute upper respiratory infection, unspecified (principal); B97.89 Other viral agents as the cause of diseases classified elsewhere; Z88.1 Allergy status to other antibiotic agents
CPT/HCPCS: 81003; 87086; 99282-25

== ENCOUNTER 2019-07-08 14:22 | Emergency (ER) | payer BC ==
[2019-07-08 14:36] VITALS: BMI 22.6
--- NOTE | 2019-07-08 14:37 | PDOC ---
Rapid Medical Evaluation Chief Complaint: Headache Time Seen by Provider: 07/08/19 14:32 Medical Evaluation: Allergies Allergy/AdvReac Type Severity Reaction Status Date / Time vancomycin Allergy Unknown Verified 06/18/19 11:38 07/08/19 14:33 I have performed a brief in-person evaluation of this patient. The patient presents with a chief complaint of:dizziness with BP problems Pertinent physical exam findings: nausea / appears weak I have ordered the following: Labs/ CT head/ Ekg The patient will proceed to the ED for further evaluation. 07/08/19 14:36 Discharge Disposition - Diagnosis HTN (hypertension) - Referrals - Patient Instructions - Post Discharge Activity
[2019-07-08 14:59] VITALS: PULSE 76
[2019-07-08] MEDS ORDERED: MECLIZINE HCL 25 MG TABLET (FP) PO ONE (15:04)
[2019-07-08] MEDS ORDERED: ONDANSETRON 4 MG/2 ML VIAL IVPB ONE (15:04)
[2019-07-08] MEDS ORDERED: MECLIZINE HCL 25 MG TABLET (FP) ONE (15:20)
[2019-07-08] MEDS ORDERED: ONDANSETRON 4 MG/2 ML VIAL ONE (15:20)
[2019-07-08 15:24] LABS: BASO % 0.7 % (0-2.0); EOS % 1.6 % (0-4.5); HEMATOCRIT 34.7 % (32.4-45.2); HEMOGLOBIN 11.1 GM/dL (10.7-15.3); LYMPH % 17.3 % (8-40); MCH 25.3 pg (25.7-33.7); MCHC 31.9 g/dl (32.0-36.0); MEAN CELL VOLUME 79.2 fl (80-96); MEAN PLT VOLUME 9.5 fl (7.5-11.1); MONO % 4.6 % (3.8-10.2); NEUT % 75.8 % (42.8-82.8); PLATELET COUNT 176 K/MM3 (134-434); RBC 4.39 M/mm3 (3.60-5.2); RDW 17.6 % (11.6-15.6)
[2019-07-08 15:28] LABS: INR 1.06 (0.83-1.09); PROTHROMBIN TIME (PATIENT) 12.5 SEC (9.7-13.0)
--- NOTE | 2019-07-08 15:46 | PDOC ---
History of Present Illness - General Chief Complaint: Headache Stated Complaint: HYPERTENSION Time Seen by Provider: 07/08/19 14:32 Past History - Past Medical History Allergies/Adverse Reactions: Allergies Allergy/AdvReac Type Severity Reaction Status Date / Time vancomycin Allergy Unknown Verified 07/08/19 14:36 Home Medications: Ambulatory Orders Hydrochlorothiazide [Hctz -] 12.5 mg PO DAILY 05/11/17 Benzonatate [Tessalon Pearls -] 200 mg PO TID #42 cap 06/18/19 COPD: No HTN: Yes - Surgical History Abdominal Surgery: Yes (gastric bypass) - Psycho Social/Smoking Cessation Hx Smoking History: Never smoked Have you smoked in the past 12 months: No Hx Alcohol Use: No Drug/Substance Use Hx: No Substance Use Type: None Hx Substance Use Treatment: No *Physical Exam - Vital Signs Last Vital Signs Temp Pulse Resp BP Pulse Ox 76 16 198/97 H 97 07/08/19 14:58 07/08/19 14:58 07/08/19 14:58 07/08/19 14:58 ED Treatment Course - LABORATORY CBC & Chemistry Diagram: 07/08/19 15:12 07/08/19 15:12 - ADDITIONAL ORDERS Additional order review: Laboratory Results 07/08/19 15:12 PT with INR 12.50 INR 1.06 07/08/19 15:12 RBC 4.39 MCV 79.2 L MCHC 31.9 L RDW 17.6 H MPV 9.5 Neutrophils % 75.8 D Lymphocytes % 17.3 D Monocytes % 4.6 Eosinophils % 1.6 Basophils % 0.7 - Medications Given in the ED: ED Medications Discontinued Medications Generic Name Dose Route Start Last Admin Trade Name Ashish PRN Reason Stop Dose Admin Meclizine HCl 25 mg 07/08/19 15:04 07/08/19 15:24 Antivert - PO 07/08/19 15:05 25 mg ONCE ONE Administration Ondansetron HCl 4 mg 07/08/19 15:04 07/08/19 15:24 Zofran Injection IVPB 07/08/19 15:05 4 mg ONCE ONE Administration Discharge - Discharge Information Clinical Impression/Diagnosis: HTN (hypertension) - Follow up/Referral Referrals: Jovita Maxwell MD [Primary Care Provider] - - Patient Discharge Instructions - Post Discharge Activity
--- NOTE | 2019-07-08 15:48 | PDOC ---
History of Present Illness - General Chief Complaint: Headache Stated Complaint: HYPERTENSION Time Seen by Provider: 07/08/19 14:32 Past History - Past Medical History Allergies/Adverse Reactions: Allergies Allergy/AdvReac Type Severity Reaction Status Date / Time vancomycin Allergy Unknown Verified 07/08/19 14:36 Home Medications: Ambulatory Orders Hydrochlorothiazide [Hctz -] 12.5 mg PO DAILY 05/11/17 Benzonatate [Tessalon Pearls -] 200 mg PO TID #42 cap 06/18/19 COPD: No HTN: Yes - Surgical History Abdominal Surgery: Yes (gastric bypass) - Psycho Social/Smoking Cessation Hx Smoking History: Never smoked Have you smoked in the past 12 months: No Hx Alcohol Use: No Drug/Substance Use Hx: No Substance Use Type: None Hx Substance Use Treatment: No *Physical Exam - Vital Signs Last Vital Signs Temp Pulse Resp BP Pulse Ox 76 16 198/97 H 97 07/08/19 14:58 07/08/19 14:58 07/08/19 14:58 07/08/19 14:58 ED Treatment Course - LABORATORY CBC & Chemistry Diagram: 07/08/19 15:12 07/08/19 15:12 - ADDITIONAL ORDERS Additional order review: Laboratory Results 07/08/19 15:12 PT with INR 12.50 INR 1.06 07/08/19 15:12 RBC 4.39 MCV 79.2 L MCHC 31.9 L RDW 17.6 H MPV 9.5 Neutrophils % 75.8 D Lymphocytes % 17.3 D Monocytes % 4.6 Eosinophils % 1.6 Basophils % 0.7 - Medications Given in the ED: ED Medications Discontinued Medications Generic Name Dose Route Start Last Admin Trade Name Ashish PRN Reason Stop Dose Admin Meclizine HCl 25 mg 07/08/19 15:04 07/08/19 15:24 Antivert - PO 07/08/19 15:05 25 mg ONCE ONE Administration Ondansetron HCl 4 mg 07/08/19 15:04 07/08/19 15:24 Zofran Injection IVPB 07/08/19 15:05 4 mg ONCE ONE Administration Medical Decision Making - Medical Decision Making 07/08/19 16:18 HPI: 64yo F hx pituitary macroadenoma, HTN on HCTZ 12.5 daily, diet-controlled NIDDM , tubal ligation, gastric bypass, dementia, migraines, and syncopal episodes presents to ED c/o dizziness. 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 Headache bitemporal, intermittent, throbbing, developed a little after lightheadedness, resolved now. All sx have resolved now with rest. No pain meds taken. Pt also notes increased BP intermittently x1wk, and states doctor changed her 10-12mg HCTZ from once every AM to once every PM a few days ago to see if helps. Also c/o intermittent cramping in b/l calves since 1100. Pt eating and drinking normally today. Pt does not remember similar sx in past but says she has had multiple similar episodes this week and for years and her neurologist is aware. This episode was worse than others this week though. Denies fever, chills, fatigue, vertigo, syncope, numbness/tingling, difficulty speaking, weakness, vision changes, shortness of breath, cough, chest pain, palpitations, leg swelling, abdominal pain, blood in stool, diarrhea, constipation, dysuria, hematuria, confusion, neck pain/ stiffness, trauma, head injury, recent travel. Neuro - Emad PCP - Annalejandra ROS: Constitutional: Negative for chills, fever, fatigue, diaphoresis. HENT: Negative for sore throat, rhinorrhea, congestion. Eyes: Negative for visual disturbance. Respiratory: Negative for shortness of breath, cough, and wheezing. Cardiovascular: Negative for chest pain, palpitations, and leg swelling. Gastrointestinal: Positive for nausea, and vomiting. Negative for abdominal pain , blood in stool, constipation, diarrhea. Genitourinary: Negative for dysuria, flank pain, and hematuria. Musculoskeletal: Positive for BLE cramping. Negative for myalgias, back pain, and neck pain. Skin: Negative for rash. Neurological: Positive for light-headedness, dizziness, and headaches. Negative for vertigo, syncope, weakness, numbness. Psychiatric/Behavioral: Positive for dementia and memory issues. Negative for behavioral problems and confusion. PE: Gen: Alert, NAD, anxious/uncomfortable-appearing. HEENT: PERRL, EOMI, MMM, NCAT. No conjunctival pallor. Sclera are non-icteric. Oropharynx is clear. CV: Regular rate and rhythm. No murmurs, rubs, or gallops. PULM: No resp distress. CTAB, no wheezes, rales, or rhonchi. ABD: soft, NT/ND, no rebound tenderness or guarding, no CVA tenderness. BACK: No TTP of c/t/l-spine. No step-offs or deformities. MSK: No bony deformities. 2+ pulses in all extremities. NEURO: AAOx3. PERRL. CN 2-12 intact. 5/5 strength in all extremities. Sensation to light touch intact in all extremities. No pronator drift. No dysmetria. No dysdiadochokinesia. No abnormal nystagmus. Normal gait. EXTREMITIES: No cyanosis. No clubbing. No edema. No calf tenderness. PSYCH: Normal mood and thought pattern. Evidence of memory issues. SKIN: Warm and dry. Normal capillary refill. No rashes. No jaundice. MDM: 64yo F hx pituitary macroadenoma, HTN on HCTZ 12.5 daily, diet-controlled NIDDM , tubal ligation, gastric bypass, dementia, migraines, and syncopal episodes presents to ED with lightheadedness, N/V, and PIERCE similar to prior syncope/ presyncope episodes, resolved. Hemodynamically stable, BP 185/92, afebrile, neurologically intact. No vertigo or syncope or seizure. Ddx inclues hypertensive urgency/emergency, ACS/[place] (low concern due to lack of CP or hx), thyroid pathology, infectious etiology, anemia, or metabolic derangement. -Given zofran and meclizine prior to assessment -CTH -CXR -EKG -CBC, CMP, Mg, Phos, Cardiac profile, TSH, UA/UC 07/08/19 17:51 CTH reviewed: no acute intracranial pathology, as on prior CT 08/27/18 there is pituitary gland enlargement which abuts the optic chiasm , no interval change CXR reviewed: no acute pathology EKG reviewed: NSR, 71bpm, normal axis, normal intervals, no e/o acute ischemia, no significant change compared to 08/29/18 Labs reviewed. Of note, K 3.4 - will replete with PO K. Pt feeling better now - all sx resolved, denies PIERCE, dizziness, cramping. Will dc home with PCP f/u. Return precautions given. Pt understands all dc instructions and all questions were answered. Discharge - Discharge Information Problems reviewed: Yes Clinical Impression/Diagnosis: HTN (hypertension) Condition: Improved Disposition: HOME - Admission No - Follow up/Referral Referrals: Jovita Maxwell MD [Primary Care Provider] - - Patient Discharge Instructions Patient Printed Discharge Instructions: DI for Malignant Hypertension Additional Instructions: You have been seen in the Emergency Department for your high blood pressure, dizziness, and headache. Take your medications (including your HCTZ) as prescribed. Follow-up with your primary care doctor within 72 hours. You may need your dose adjusted. Return to the Emergency Department immediately if you experience fever, headache , vision changes, numbness or tingling, difficulty walking, difficulty speaking , confusion, or any other new or worsening symptom. - Post Discharge Activity
[2019-07-08 15:59] LABS: ALBUMIN 3.8 g/dl (3.4-5.0); ALK PHOS 86 U/L (45-117); ANION GAP 9 MMOL/L (8-16); BILIRUBIN,TOTAL 0.3 mg/dL (0.2-1); BLOOD UREA NITROGEN 11.8 mg/dL (7-18); CALCIUM 8.7 mg/dL (8.5-10.1); CHLORIDE 103 mmol/L (98-107); CO2 25 mmol/L (21-32); CREATININE 0.6 mg/dL (0.55-1.3); GLUCOSE,RANDOM 152 mg/dL (74-106); N-TERMINAL BNP 83.3 pg/ml (5-125); POTASSIUM 3.4 mmol/L (3.5-5.1); SGOT/AST 33 U/L (15-37); SGPT/ALT 21 U/L (13-61); SODIUM 137 mmol/L (136-145); TOT PROT 8.1 g/dl (6.4-8.2)
--- NOTE | 2019-07-08 16:07 | PDOC ---
Attending Attestation - Resident Resident Name: JourdanmilagrosJeny - ED Attending Attestation I have performed the following: I have examined & evaluated the patient, The case was reviewed & discussed with the resident, I agree w/resident's findings & plan, Exceptions are as noted - HPI HPI: 07/08/19 15:50 64y F hx of htn, presents with dizziness. Pt notes that her BP has been elevated intermittently for the past week. She went to work as usual this morning feeling well, but this morning at work, started feeling unwell, dizzy, mild headache. associated with nausea/vomiting. pt denies any double vision, speech changes, cp, palpitations, sob, abd pain, back pain, neck pain. no recent trauma or injury. pt has been complaint with her htn meds. surgical hx: hx of gastric bypass Physical Exam GENERAL: The patient is awake, alert, and fully oriented, Nontoxic - in no acute distress. HEAD: Normocephalic, atraumatic. EYES: extraocular movements intact, sclera anicteric, conjunctiva clear. ENT: Normal voice, Moist mucous membranes. NECK: Normal range of motion, supple LUNGS: Breath sounds equal, clear to auscultation bilaterally. No wheezes, no rhonchi, no rales. HEART: Regular rate and rhythm, normal S1 and S2 without murmur, rub or gallop. ABDOMEN: Soft, nontender, No guarding, no rebound. No CVA tenderness EXTREMITIES: Normal range of motion, no edema. NEUROLOGICAL: No facial assymetry, Normal speech, normal finger to nose, smmetric strength b/l in upper.lower extremties, normal gait PSYCH: Normal mood, normal affect. SKIN: Warm, Dry, normal turgor, ddx - vertigo, hypertensiv emergency, acs, anemia, metabolic derangement will obtain labs, ct head, ekg will give meclizine, zofran will reassess - Physicial Exam PE: 07/12/19 11:36 see above - Medical Decision Making labs reviewed pt feeling improved will dc with supportive care BP improved will dc withpmd return precautions were discussed Heart Score/ECG Review - ECG Impressions Comment:: 07/08/19 16:07 Twelve-lead EKG was performed and reviewed by me. There is normal sinus rhythm with a normal rate. Rate of 71 The axis is normal. The intervals are normal. There is normal R wave progression There are no ST or T wave abnormalities. Impression: Normal twelve-lead EKG
[2019-07-08] MEDS ORDERED: HYDROCHLOROTHIAZIDE 25 MG TABLET (FP) PO ONE (16:18)
[2019-07-08] MEDS ORDERED: HYDROCHLOROTHIAZIDE 25 MG TABLET (FP) ONE (16:26)
[2019-07-08 17:08] LABS: PH,URINE >= 9.0 (5.0-8.0); URINE APPEARANCE CLEAR; URINE BILIRUBIN NEGATIVE (NEGATIVE); URINE COLOR YELLOW; URINE GLUCOSE (UA) NEGATIVE (NEGATIVE); URINE KETONE TRACE (NEGATIVE); URINE LEUK ESTERASE NEGATIVE (NEGATIVE); URINE NITRITE NEGATIVE (NEGATIVE); URINE PROTEIN NEGATIVE (NEGATIVE); URINE UROBILINOGEN 0.2 mg/dL (0.2-1.0)
[2019-07-08 17:16] LABS: PHOSPHOROUS 3.4 mg/dL (2.5-4.9)
[2019-07-08] MEDS ORDERED: POTASSIUM CHLORIDE TABS 20 MEQ TABLET.ER (FP) PO ONE ×2 (17:52→17:59)
[2019-07-08 18:05] VITALS: BP 185/92; TEMP 98.6
--- NOTE | 2019-07-09 11:11 | EKG ---
Test Reason : Blood Pressure : / mmHG Vent. Rate : 071 BPM Atrial Rate : 071 BPM P-R Int : 180 ms QRS Dur : 088 ms QT Int : 422 ms P-R-T Axes : 056 021 011 degrees QTc Int : 458 ms NORMAL SINUS RHYTHM NONSPECIFIC ST ABNORMALITY WHEN COMPARED WITH ECG OF 29-AUG-2018 12:28, NO SIGNIFICANT CHANGE WAS FOUND Confirmed by MICHAEL MICHAEL MD ([id number]) on 07/09/2019 11:11:01 AM Referred By: Confirmed By:MICHAEL MICHAEL MD
== END 2019-07-08 18:34 | disposition home or self-care (01) ==
LOC: JER 14:22
PROC: 3E033GC Introduction of Other Therapeutic Substance into Peripheral Vein, Percutaneous Approach (ICD-10-PCS; principal; 2019-07-08)
DX: I10 Essential (primary) hypertension (principal); E87.6 Hypokalemia; E11.9 Type 2 diabetes mellitus without complications; F03.90 Unspecified dementia, unspecified severity, without behavioral disturbance, psychotic disturbance, mood disturbance, and anxiety; Z98.84 Bariatric surgery status; Z98.51 Tubal ligation status; D35.2 Benign neoplasm of pituitary gland
CPT/HCPCS: 36415; 70450-TC; 71045-TC-FY; 80053; 81003; 82550; 83735; 83880; 84100; 84443; 84484; 85025; 85610; 87086; 93005; 93010; 99284-25

== ENCOUNTER 2022-11-01 20:49 | Observation (INO) | payer OTHER, BC ==
[2022-11-01] MEDS ORDERED: DIPHTH,PERTUSS(ACELL),TET 0.5 ML DISP.SYRIN IM ONE ×2 (21:13→21:30)
[2022-11-01] MEDS ORDERED: LIDOCAINE IJ ONE (21:14)
[2022-11-01] MEDS ORDERED: EPINEPHRINE IJ ONE (21:14)
[2022-11-01] MEDS ORDERED: CEPHALEXIN MONOHYDRATE 500 MG CAPSULE (UD) PO ONE (21:17)
[2022-11-01] MEDS ORDERED: FOLIC ACID INJECTION - 1 MG, THIAMINE HCL 100 MG, MULTIVIT INJECTION ADULT 10 ML in SOD... IVPB ONE (21:17)
[2022-11-01] MEDS ORDERED: ACETAMINOPHEN 1000 MG/100 ML BAG IVPB ONE (21:17)
[2022-11-01] MEDS ORDERED: CEPHALEXIN MONOHYDRATE 500 MG CAPSULE (UD) ONE (21:22)
[2022-11-01] MEDS ORDERED: ACETAMINOPHEN INJECTION 100 ML IVPB ONE (21:22)
[2022-11-01 22:20] LABS: BASO % 0.5 % (0-2.0); EOS % 0.7 % (0-4.5); HEMATOCRIT 36.8 % (32.4-45.2); HEMOGLOBIN 12.2 GM/dL (10.7-15.3); LYMPH % 13.3 % (8-40); MCH 28.2 pg (25.7-33.7); MCHC 33.1 g/dl (32.0-36.0); MEAN CELL VOLUME 85.3 fl (80-96); MEAN PLT VOLUME 9.7 fl (7.5-11.1); MONO % 4.5 % (3.8-10.2); PLATELET COUNT 177 10^3/uL (134-434); RBC 4.31 M/mm3 (3.60-5.2); RDW 15.5 % (11.6-15.6); WHITE BLOOD COUNT 6.9 K/mm3 (4.0-10.0)
[2022-11-01 22:39] LABS: SODIUM 137 mmol/L (136-145)
[2022-11-01 22:40] LABS: CHLORIDE 107 mmol/L (98-107)
[2022-11-01 22:42] LABS: ALBUMIN 3.6 g/dl (3.4-5.0); ANION GAP 4 MMOL/L (8-16); BLOOD UREA NITROGEN 17.4 mg/dL (7-18); CALCIUM 9.2 mg/dL (8.5-10.1); CO2 25 mmol/L (21-32); GLUCOSE,RANDOM 106 mg/dL (74-106)
[2022-11-01 22:44] LABS: SGPT/ALT 43 U/L (13-61)
[2022-11-01 22:46] LABS: BILIRUBIN,TOTAL 0.6 mg/dL (0.2-1); CREATININE 0.8 mg/dL (0.55-1.3); SGOT/AST 80 U/L (15-37)
[2022-11-01 22:47] LABS: ALK PHOS 62 U/L (45-117)
[2022-11-02 02:47] VITALS: BMI 21.3
[2022-11-02] MEDS ORDERED: COSYNTROPIN 0.25 MG VIAL IVPUSH ONE ×2 (05:00)
[2022-11-02 08:05] LABS: BASO % 0.6 % (0-2.0); EOS % 1.3 % (0-4.5); HEMATOCRIT 36.1 % (32.4-45.2); HEMOGLOBIN 12.4 GM/dL (10.7-15.3); LYMPH % 26.5 % (8-40); MCH 28.9 pg (25.7-33.7); MCHC 34.2 g/dl (32.0-36.0); MEAN CELL VOLUME 84.3 fl (80-96); MEAN PLT VOLUME 10.4 fl (7.5-11.1); MONO % 6.5 % (3.8-10.2); NEUT % 65.1 % (42.8-82.8); PLATELET COUNT 179 10^3/uL (134-434); RBC 4.28 M/mm3 (3.60-5.2); RDW 14.9 % (11.6-15.6); WHITE BLOOD COUNT 7.1 K/mm3 (4.0-10.0)
[2022-11-02 08:14] LABS: CHLORIDE 106 mmol/L (98-107); SODIUM 139 mmol/L (136-145)
[2022-11-02 08:26] LABS: CALCIUM 8.9 mg/dL (8.5-10.1)
[2022-11-02 08:28] LABS: ALBUMIN 3.4 g/dl (3.4-5.0); BLOOD UREA NITROGEN 9.8 mg/dL (7-18); CO2 28 mmol/L (21-32); GLUCOSE,RANDOM 76 mg/dL (74-106); MAGNESIUM 2.1 mg/dL (1.8-2.4)
[2022-11-02 08:30] LABS: CREATININE 0.5 mg/dL (0.55-1.3); SGOT/AST 39 U/L (15-37); SGPT/ALT 33 U/L (13-61)
[2022-11-02 08:31] LABS: TOT PROT 7.2 g/dl (6.4-8.2)
[2022-11-02 08:32] LABS: BILIRUBIN,TOTAL 0.6 mg/dL (0.2-1)
[2022-11-02 08:34] LABS: ALK PHOS 60 U/L (45-117)
[2022-11-02 09:00] LABS: ANION GAP 4 MMOL/L (8-16)
[2022-11-02] MEDS: FLUoxetine HCL 20 MG CAPSULE PO SCH (09:20)
[2022-11-02] MEDS: FERROUS SO4 325 MG TABLET (FP) PO SCH (09:20)
[2022-11-02] MEDS ORDERED: POTASSIUM CHLORIDE ORAL LIQUID 20 MEQ/15 ML PO ONE (10:45)
[2022-11-02] MEDS: KCL 10 MEQ IVPB 10 MEQ/100 ML INFUS.BAG IVPB SCH ×3 (10:58→13:54)
[2022-11-02] MEDS ORDERED: SODIUM CHLORIDE 1,000 ML IV SCH (15:30)
[2022-11-02 16:57] LABS: CALCIUM 9.4 mg/dL (8.5-10.1)
[2022-11-02 16:58] LABS: BLOOD UREA NITROGEN 11.4 mg/dL (7-18)
[2022-11-02 17:01] LABS: CREATININE 0.6 mg/dL (0.55-1.3)
[2022-11-02] MEDS: MELATONIN 5 MG TABLETS PO PRN (21:34)
[2022-11-02] MEDS: ROSUVASTATIN CA 5 MG TABLET PO SCH (21:34)
[2022-11-02] MEDS: ACETAMINOPHEN 325 MG TABLET (FP) PO PRN (21:34)
[2022-11-02] MEDS ORDERED: DONEPEZIL HCL 10 MG TABLET (FP) PO SCH (22:00)
[2022-11-03] MEDS: FERROUS SO4 325 MG TABLET (FP) PO SCH (09:01)
[2022-11-03] MEDS: FLUoxetine HCL 20 MG CAPSULE PO SCH (09:01)
[2022-11-03] MEDS: ENOXAPARIN NA (PORCINE) 40 MG/0.4 ML DISP.SYRIN SQ SCH (09:01)
[2022-11-03 09:20] LABS: BASO % 0.7 % (0-2.0); EOS % 2.5 % (0-4.5); HEMATOCRIT 34.5 % (32.4-45.2); LYMPH % 31.4 % (8-40); MCH 29.3 pg (25.7-33.7); MCHC 34.8 g/dl (32.0-36.0); MEAN CELL VOLUME 84.2 fl (80-96); MEAN PLT VOLUME 10.3 fl (7.5-11.1); MONO % 6.7 % (3.8-10.2); NEUT % 58.7 % (42.8-82.8); PLATELET COUNT 167 10^3/uL (134-434); RDW 14.7 % (11.6-15.6); WHITE BLOOD COUNT 4.4 K/mm3 (4.0-10.0)
[2022-11-03 09:48] LABS: CALCIUM 9.2 mg/dL (8.5-10.1)
[2022-11-03 09:49] LABS: ALBUMIN 3.2 g/dl (3.4-5.0)
[2022-11-03 09:51] LABS: CREATININE 0.5 mg/dL (0.55-1.3); PHOSPHOROUS 3.3 mg/dL (2.5-4.9)
[2022-11-03 09:52] LABS: BILIRUBIN,TOTAL 0.9 mg/dL (0.2-1)
[2022-11-03] MEDS: BACITRACIN ZINC 15 GM TUBE TOPICAL OINTMENT TP SCH (14:03)
[2022-11-03 19:07] VITALS: RESP 20
[2022-11-03] MEDS: MEMANTINE HCL 10 MG TABLET (FP) PO SCH (21:52)
[2022-11-03] MEDS: ROSUVASTATIN CA 5 MG TABLET PO SCH (21:52)
[2022-11-03] MEDS: DONEPEZIL HCL 10 MG TABLET (FP) PO SCH (21:52)
[2022-11-03] MEDS: ACETAMINOPHEN 325 MG TABLET (FP) PO PRN (21:52)
[2022-11-03] MEDS: MELATONIN 5 MG TABLETS PO PRN (21:52)
[2022-11-04] MEDS: MEMANTINE HCL 10 MG TABLET (FP) PO SCH ×2 (09:42→21:40)
[2022-11-04] MEDS: FERROUS SO4 325 MG TABLET (FP) PO SCH (09:42)
[2022-11-04] MEDS: FLUoxetine HCL 20 MG CAPSULE PO SCH (09:42)
[2022-11-04] MEDS: ENOXAPARIN NA (PORCINE) 40 MG/0.4 ML DISP.SYRIN SQ SCH (09:42)
[2022-11-04] MEDS: BACITRACIN ZINC 15 GM TUBE TOPICAL OINTMENT TP SCH (09:43)
[2022-11-04] MEDS: DONEPEZIL HCL 10 MG TABLET (FP) PO SCH ×2 (09:46→21:40)
[2022-11-04 10:45] LABS: CALCIUM 8.9 mg/dL (8.5-10.1)
[2022-11-04 10:46] LABS: ALBUMIN 3.1 g/dl (3.4-5.0); BLOOD UREA NITROGEN 12.4 mg/dL (7-18)
[2022-11-04 10:49] LABS: CREATININE 0.6 mg/dL (0.55-1.3); PHOSPHOROUS 3.6 mg/dL (2.5-4.9)
[2022-11-04 10:50] LABS: BILIRUBIN,TOTAL 0.4 mg/dL (0.2-1); TOT PROT 6.8 g/dl (6.4-8.2)
[2022-11-04] MEDS ORDERED: LACTATED RINGERS SOLUTION 1,000 ML/1,000 ML INFUS.BAG IV SCH (15:15)
[2022-11-04] MEDS: ACETAMINOPHEN 325 MG TABLET (FP) PO PRN (21:40)
[2022-11-04] MEDS: ROSUVASTATIN CA 5 MG TABLET PO SCH (21:40)
[2022-11-04] MEDS: MELATONIN 5 MG TABLETS PO PRN (21:40)
[2022-11-04] MEDS ORDERED: COSYNTROPIN 0.25 MG VIAL IVPUSH ONE (22:46)
[2022-11-05 08:50] LABS: HEMATOCRIT 35.4 % (32.4-45.2); HEMOGLOBIN 12.2 GM/dL (10.7-15.3); MCH 29.2 pg (25.7-33.7); MCHC 34.4 g/dl (32.0-36.0); MEAN PLT VOLUME 11.3 fl (7.5-11.1); PLATELET COUNT 196 10^3/uL (134-434); RBC 4.16 M/mm3 (3.60-5.2); RDW 15.1 % (11.6-15.6); WHITE BLOOD COUNT 4.6 K/mm3 (4.0-10.0)
[2022-11-05 09:04] LABS: ALBUMIN 3.2 g/dl (3.4-5.0); BLOOD UREA NITROGEN 11.8 mg/dL (7-18); CALCIUM 9.1 mg/dL (8.5-10.1); MAGNESIUM 1.9 mg/dL (1.8-2.4)
[2022-11-05 09:06] LABS: PHOSPHOROUS 3.8 mg/dL (2.5-4.9)
[2022-11-05 09:07] LABS: CREATININE 0.6 mg/dL (0.55-1.3)
[2022-11-05 09:08] LABS: BILIRUBIN,TOTAL 0.4 mg/dL (0.2-1); TOT PROT 7.2 g/dl (6.4-8.2)
[2022-11-05] MEDS: FERROUS SO4 325 MG TABLET (FP) PO SCH (09:37)
[2022-11-05] MEDS: DONEPEZIL HCL 10 MG TABLET (FP) PO SCH ×2 (09:37→22:00)
[2022-11-05] MEDS: FLUoxetine HCL 20 MG CAPSULE PO SCH (09:37)
[2022-11-05] MEDS: BACITRACIN ZINC 15 GM TUBE TOPICAL OINTMENT TP SCH (09:38)
[2022-11-05] MEDS: ENOXAPARIN NA (PORCINE) 40 MG/0.4 ML DISP.SYRIN SQ SCH (09:38)
[2022-11-05] MEDS: MEMANTINE HCL 10 MG TABLET (FP) PO SCH ×2 (09:38→22:00)
[2022-11-05] MEDS: ROSUVASTATIN CA 5 MG TABLET PO SCH (22:00)
[2022-11-06 08:15] LABS: HEMATOCRIT 33.9 % (32.4-45.2); HEMOGLOBIN 11.7 GM/dL (10.7-15.3); MCHC 34.5 g/dl (32.0-36.0); MEAN CELL VOLUME 84.2 fl (80-96); MEAN PLT VOLUME 10.2 fl (7.5-11.1); PLATELET COUNT 183 10^3/uL (134-434); RBC 4.03 M/mm3 (3.60-5.2); RDW 14.7 % (11.6-15.6); WHITE BLOOD COUNT 4.6 K/mm3 (4.0-10.0)
[2022-11-06 08:24] LABS: CALCIUM 9.1 mg/dL (8.5-10.1)
[2022-11-06 08:25] LABS: BLOOD UREA NITROGEN 10.3 mg/dL (7-18)
[2022-11-06 08:28] LABS: CREATININE 0.5 mg/dL (0.55-1.3); PHOSPHOROUS 4.2 mg/dL (2.5-4.9)
[2022-11-06] MEDS: ENOXAPARIN NA (PORCINE) 40 MG/0.4 ML DISP.SYRIN SQ SCH (09:38)
[2022-11-06] MEDS: DONEPEZIL HCL 10 MG TABLET (FP) PO SCH ×2 (09:38→21:16)
[2022-11-06] MEDS: FERROUS SO4 325 MG TABLET (FP) PO SCH (09:38)
[2022-11-06] MEDS: MEMANTINE HCL 10 MG TABLET (FP) PO SCH ×2 (09:38→21:16)
[2022-11-06] MEDS: BACITRACIN ZINC 15 GM TUBE TOPICAL OINTMENT TP SCH (09:38)
[2022-11-06] MEDS: FLUoxetine HCL 20 MG CAPSULE PO SCH (09:38)
[2022-11-06] MEDS: ROSUVASTATIN CA 5 MG TABLET PO SCH (21:16)
[2022-11-06] MEDS: MELATONIN 5 MG TABLETS PO PRN (21:17)
[2022-11-07] MEDS: ENOXAPARIN NA (PORCINE) 40 MG/0.4 ML DISP.SYRIN SQ SCH (10:04)
[2022-11-07] MEDS: BACITRACIN ZINC 15 GM TUBE TOPICAL OINTMENT TP SCH (10:04)
[2022-11-07] MEDS: FERROUS SO4 325 MG TABLET (FP) PO SCH (10:04)
[2022-11-07] MEDS: DONEPEZIL HCL 10 MG TABLET (FP) PO SCH (10:04)
[2022-11-07] MEDS: FLUoxetine HCL 20 MG CAPSULE PO SCH (10:04)
[2022-11-07] MEDS: MEMANTINE HCL 10 MG TABLET (FP) PO SCH (10:04)
[2022-11-07 15:59] VITALS: BP 165/95; PULSE 68; TEMP 98
== END 2022-11-07 18:20 | disposition home or self-care (01) ==
LOC: JER 20:49 → UNDOADMOB 11-02 00:03 → JERBED 11-02 00:03 → OBSVTOIN 11-02 01:09 → INTOOBSV 11-02 01:09 → J4W 11-02 02:28 → JERBED 11-02 02:28 → J4W 11-03 13:59 → JERBED 11-03 13:59
PROVIDERS: ADMIT Internal Medicine; ATTEND Internal Medicine
PROC: 0HQ1XZZ Repair Face Skin, External Approach (ICD-10-PCS; principal; 2022-11-03)
PROC: 3E033GC Introduction of Other Therapeutic Substance into Peripheral Vein, Percutaneous Approach (ICD-10-PCS; 2022-11-03)
PROC: 3E0337Z Introduction of Electrolytic and Water Balance Substance into Peripheral Vein, Percutaneous Approach (ICD-10-PCS; 2022-11-03)
PROC: 3E0234Z Introduction of Serum, Toxoid and Vaccine into Muscle, Percutaneous Approach (ICD-10-PCS; 2022-11-03)
DX: S01.81XA Laceration without foreign body of other part of head, initial encounter (principal); E87.6 Hypokalemia; E78.5 Hyperlipidemia, unspecified; G30.9 Alzheimer's disease, unspecified; F02.80 Dementia in other diseases classified elsewhere, unspecified severity, without behavioral disturbance, psychotic disturbance, mood disturbance, and anxiety; D35.2 Benign neoplasm of pituitary gland; I10 Essential (primary) hypertension; E11.9 Type 2 diabetes mellitus without complications; W19.XXXA Unspecified fall, initial encounter; Z91.81 History of falling; Y93.9 Activity, unspecified; Y92.89 Other specified places as the place of occurrence of the external cause; R42 Dizziness and giddiness; R30.0 Dysuria; Z86.39 Personal history of other endocrine, nutritional and metabolic disease; Z98.84 Bariatric surgery status; Z88.1 Allergy status to other antibiotic agents
CPT/HCPCS: 0241U-QW; 12013; 36415; 70450-TC; 70486-TC; 70553-TC; 72125-TC; 80048; 80053; 80307; 82024; 82533; 82607; 83003; 83735; 84100; 84146; 84305; 84443; 84484; 85025; 85027; 90471; 90715; 93005; 93010; 96361; 96365; 96366; 96375; 97116-GP; 97161-GP; 99285-25; A9579; G0378; J0834

== ENCOUNTER 2023-10-31 10:34 | Emergency (ER) | payer OTHER, BC ==
[2023-10-31 11:26] VITALS: RESP 18; BMI 25.8
[2023-10-31 14:51] VITALS: BP 162/85; PULSE 85; TEMP 97.6
== END 2023-10-31 15:05 ==
LOC: JER 10:34
DX: S00.03XA Contusion of scalp, initial encounter (principal); S80.211A Abrasion, right knee, initial encounter; W01.198A Fall on same level from slipping, tripping and stumbling with subsequent striking against other object, initial encounter
CPT/HCPCS: 70450-TC; 73562-TC-RT-FY; 93005; 93010; 99284-25

== ENCOUNTER 2023-11-17 14:44 | Emergency (ER) | payer OTHER, BC ==
[2023-11-17 15:03] VITALS: BP 134/58; PULSE 68; RESP 17; TEMP 98.7; BMI 21.1
== END 2023-11-17 18:42 | disposition home or self-care (01) ==
LOC: JER 14:44
DX: S09.90XA Unspecified injury of head, initial encounter (principal); W19.XXXA Unspecified fall, initial encounter
CPT/HCPCS: 70450-TC; 71045-TC-FY; 72125-TC; 72170-TC-FY; 82962; 99285-25